=== PATIENT | male | born 1960 | race Caucasian/White ===

== ENCOUNTER 2018-04-04 20:38 | Inpatient (IN) | payer BC ==
[2018-04-04] MEDS ORDERED: ONDANSETRON 4 MG INJ IV (22:30)
[2018-04-04] MEDS ORDERED: GLUCOSE GEL 15 GRAM TUBE BUCCAL (22:30)
[2018-04-04] MEDS ORDERED: GLUCOSE GEL 15 GRAM TUBE PO ×2 (22:30)
[2018-04-04] MEDS ORDERED: DEXTROSE 50% 50 ML SYRINGE IV ×2 (22:30)
[2018-04-04] MEDS ORDERED: GLUCAGON 1 MG INJ IM (22:30)
[2018-04-04] MEDS ORDERED: VANCOMYCIN IV PER PHARMACY XX (22:30)
[2018-04-04] MEDS ORDERED: NACL 0.9% 3 ML SYG IV (22:30)
[2018-04-04 22:33] LABS: ADD MAN DIFF? NO
[2018-04-04 22:35] LABS: ABNORMAL IP MESSAGE 1; BASOPHILS % 0.1 % (0.0-2.0); EOSINOPHILS # 0.1 10^3/ul (0.0-0.5); EOSINOPHILS % 0.7 % (0.0-7.0); HEMATOCRIT 33.8 % (42.0-52.0); HEMOGLOBIN 11.6 g/dl (14.0-18.0); LYMPHOCYTES # 0.5 10^3/ul (0.8-2.9); LYMPHOCYTES % 4.7 % (15.0-51.0); MEAN CORPUSCULAR HGB CONC 34.3 g/dl (32.0-37.0); MEAN CORPUSCULAR VOLUME 90.4 fl (82.0-101.0); MEAN PLATELET VOLUME 9.7 fl (7.4-10.4); MONOCYTE # 0.3 10^3/ul (0.3-0.9); MONOCYTES % 2.8 % (0.0-11.0); NEUTROPHIL # 9.3 10^3/ul (1.6-7.5); NEUTROPHILS % 91.3 % (39.0-77.0); PLATELET COUNT 306 10^3/UL (140-415); POSITIVE DIFF @See below; RED BLOOD COUNT 3.74 10^6/ul (4.70-6.10); RED CELL DISTRIBUTION WIDTH 12.3 % (11.5-14.5)
[2018-04-04 22:35] LABS: WHITE BLOOD COUNT 10.2 10^3/ul (4.8-10.8)
[2018-04-04] MEDS: HEPARIN 5,000 UNIT/1 ML VIAL SC (22:48)
[2018-04-04] MEDS: HYDROCODONE/APAP (5/325) TAB PO (22:49)
[2018-04-04 22:54] LABS: ANION GAP 16 (5-13); BLOOD UREA NITROGEN 35 mg/dl (7-20); CALCIUM 8.9 mg/dl (8.4-10.2); CARBON DIOXIDE 16 mmol/L (21-31); CHLORIDE 106 mmol/L (97-110); CREATININE 1.82 mg/dl (0.61-1.24); Estimated GFR 39 mL/min (>60); GLUCOSE 252 mg/dl (70-220); POTASSIUM 3.9 mmol/L (3.5-5.1); SODIUM 138 mmol/L (135-144)
[2018-04-04 23:39] LABS: ERYTHROCYTE SEDIMENTATION RATE 70 mm/Hr (0-20)
[2018-04-05] MEDS: VANCOMYCIN 2 GM in SOD CHLORIDE 0.9% 500 ML IVPB (00:43)
[2018-04-05] MEDS: ACCU-CHEK XX (02:00)
[2018-04-05] MEDS ORDERED: PENDING SANTYL ORDER FOR WOUND CARE XX (04:30)
[2018-04-05] MEDS ORDERED: COLLAGENASE 5 GM (UD JAR) TOP (05:00)
[2018-04-05 06:06] LABS: ADD MAN DIFF? NO
[2018-04-05 06:08] LABS: WHITE BLOOD COUNT 9.8 10^3/ul (4.8-10.8)
[2018-04-05 06:08] LABS: ABNORMAL IP MESSAGE 1; BASOPHILS % 0.1 % (0.0-2.0); EOSINOPHILS # 0.2 10^3/ul (0.0-0.5); EOSINOPHILS % 1.7 % (0.0-7.0); HEMATOCRIT 33.1 % (42.0-52.0); HEMOGLOBIN 11.3 g/dl (14.0-18.0); LYMPHOCYTES # 0.3 10^3/ul (0.8-2.9); LYMPHOCYTES % 3.2 % (15.0-51.0); MEAN CORPUSCULAR HGB CONC 34.1 g/dl (32.0-37.0); MEAN CORPUSCULAR VOLUME 90.9 fl (82.0-101.0); MEAN PLATELET VOLUME 9.7 fl (7.4-10.4); MONOCYTE # 0.2 10^3/ul (0.3-0.9); MONOCYTES % 1.6 % (0.0-11.0); NEUTROPHIL # 9.1 10^3/ul (1.6-7.5); NEUTROPHILS % 92.9 % (39.0-77.0); PLATELET COUNT 301 10^3/UL (140-415); POSITIVE DIFF @See below; RED BLOOD COUNT 3.64 10^6/ul (4.70-6.10); RED CELL DISTRIBUTION WIDTH 12.3 % (11.5-14.5)
[2018-04-05] MEDS: HEPARIN 5,000 UNIT/1 ML VIAL SC ×2 (06:09→20:38)
[2018-04-05 06:31] LABS: ADD UMIC YES; UR ASCORBIC ACID NEGATIVE (NEGATIVE); UR BACTERIA FEW /HPF (NONE SEEN); UR BILIRUBIN (Dip) NEGATIVE (NEGATIVE); UR BLOOD (Dip) NEGATIVE (NEGATIVE); UR CLARITY CLOUDY (CLEAR); UR COLOR AMBER (YELLOW); UR GLUCOSE (Dip) 1+ mg/dL (NEGATIVE); UR KETONES (Dip) NEGATIVE (NEGATIVE); UR LEUKOCYTE ESTERASE (Dip) 1+ Leu/ul (NEGATIVE); UR NITRITE (Dip) NEGATIVE (NEGATIVE); UR RBC 1 /HPF (0-5); UR SPECIFIC GRAVITY (Dip) 1.019 (1.003-1.030); UR SQUAMOUS EPITHELIAL CELL FEW /HPF (FEW); UR TOTAL PROTEIN (Dip) 2+ mg/dl (NEGATIVE); UR UROBILINOGEN (Dip) 2+ mg/dL (NEGATIVE); UR WBC 13 /HPF (0-5)
[2018-04-05 06:36] LABS: HEMOGLOBIN A1C 9.4 % (0-5.9)
[2018-04-05 06:50] LABS: ALANINE AMINOTRANSFERASE 91 IU/L (13-69); ALBUMIN 2.9 g/dl (3.3-4.9); ALBUMIN/GLOBULIN RATIO 0.93; ALKALINE PHOSPHATASE 151 IU/L (42-121); ANION GAP 13 (5-13); ASPARTATE AMINO TRANSFERASE 56 IU/L (15-46); BILIRUBIN,INDIRECT 0.3 mg/dl (0-1.1); BILIRUBIN,TOTAL 0.3 mg/dl (0.2-1.3); BLOOD UREA NITROGEN 44 mg/dl (7-20); CALCIUM 8.2 mg/dl (8.4-10.2); CARBON DIOXIDE 16 mmol/L (21-31); CHLORIDE 108 mmol/L (97-110); CHOL/HDL RATIO 6.8 RATIO; CHOLESTEROL 130 mg/dl (100-200); CREATININE 1.96 mg/dl (0.61-1.24); Estimated GFR 35 mL/min (>60); GLUCOSE 308 mg/dl (70-220); HDL CHOLESTEROL 19 mg/dl (28-71); LDL CHOLESTEROL,CALCULATED 82 mg/dl; MAGNESIUM 1.6 mg/dl (1.7-2.5); POTASSIUM 3.9 mmol/L (3.5-5.1); SODIUM 137 mmol/L (135-144); TRIGLYCERIDES 143 mg/dl (0-149)
[2018-04-05] MEDS: INSULIN ASPART [NOVOLOG] 3 ML PEN SC ×4 (08:06→20:34)
[2018-04-05 08:10] LABS: THYROID STIMULATING HORMONE 0.432 MIU/L (0.465-4.680)
[2018-04-05] MEDS: MAGNESIUM OXIDE 400 MG TAB PO (09:28)
[2018-04-05] MEDS: COLLAGENASE 5 GM (UD JAR) TOP (09:28)
[2018-04-05] MEDS: SOD CHLORIDE 0.9% 1,000 ML IV ×2 (09:30→20:17)
[2018-04-05 12:36] LABS: C-REACTIVE PROTEIN 23.3 mg/dl (0.0-0.9)
[2018-04-05] MEDS: GUAIFENESIN 20 MG/ML 5ML CUP PO (18:13)
[2018-04-05] MEDS: ACETAMINOPHEN 325 MG TAB PO (20:16)
[2018-04-05] MEDS: INSULIN GLARGINE [LANTus] (100 UNITS/ML) SYG SC (20:30)
[2018-04-06] MEDS: GUAIFENESIN 20 MG/ML 5ML CUP PO (02:43)
[2018-04-06] MEDS: SOD CHLORIDE 0.9% 1,000 ML IV (06:14)
[2018-04-06 06:21] LABS: ALANINE AMINOTRANSFERASE 78 IU/L (13-69); ALBUMIN 2.9 g/dl (3.3-4.9); ALBUMIN/GLOBULIN RATIO 0.96; ALKALINE PHOSPHATASE 184 IU/L (42-121); ANION GAP 10 (5-13); ASPARTATE AMINO TRANSFERASE 30 IU/L (15-46); BILIRUBIN,INDIRECT 0.2 mg/dl (0-1.1); BILIRUBIN,TOTAL 0.2 mg/dl (0.2-1.3); BLOOD UREA NITROGEN 37 mg/dl (7-20); CALCIUM 8.1 mg/dl (8.4-10.2); CARBON DIOXIDE 16 mmol/L (21-31); CHLORIDE 113 mmol/L (97-110); CREATININE 1.43 mg/dl (0.61-1.24); Estimated GFR 51 mL/min (>60); GLUCOSE 285 mg/dl (70-220); MAGNESIUM 1.8 mg/dl (1.7-2.5); POTASSIUM 3.8 mmol/L (3.5-5.1); SODIUM 139 mmol/L (135-144); TOTAL PROTEIN 5.9 g/dl (6.1-8.1)
[2018-04-06] MEDS: INSULIN ASPART [NOVOLOG] 3 ML PEN SC ×4 (07:56→20:16)
[2018-04-06] MEDS: LEVOFLOXACIN 750MG/D5W (PMX) 150 ML IVPB (09:05)
[2018-04-06] MEDS: HEPARIN 5,000 UNIT/1 ML VIAL SC ×2 (09:05→20:17)
[2018-04-06] MEDS: COLLAGENASE 5 GM (UD JAR) TOP (09:05)
[2018-04-06] MEDS: VANCOMYCIN 1 GM 250 ML IVPB ×2 (11:11→22:52)
[2018-04-06] MEDS: SODIUM HYPOCHLORITE (1/40) 1 APPLIC BTL IRR (11:11)
[2018-04-06 13:30] LABS: C-REACTIVE PROTEIN 20.8 mg/dl (0.0-0.9)
[2018-04-06 14:04] LABS: ERYTHROCYTE SEDIMENTATION RATE 63 mm/Hr (0-20)
[2018-04-06] MEDS: GUAIFENESIN/DM 5ML CUP PO ×2 (17:30→22:39)
[2018-04-06] MEDS: ACETAMINOPHEN 325 MG TAB PO (20:06)
[2018-04-06] MEDS: INSULIN GLARGINE [LANTus] (100 UNITS/ML) SYG SC (20:16)
[2018-04-06] MEDS: LEVALBUTEROL (NEB) 1.25 MG/0.5 ML AMP HHN (22:56)
[2018-04-07] MEDS: LEVALBUTEROL (NEB) 1.25 MG/0.5 ML AMP HHN ×6 (02:11→21:34)
[2018-04-07] MEDS: DOCUSATE SODIUM 100 MG CAP PO ×3 (02:22→21:12)
[2018-04-07] MEDS: BISACODYL (EC) 5 MG TAB PO (02:23)
[2018-04-07] MEDS: INSULIN ASPART [NOVOLOG] 3 ML PEN SC ×5 (02:47→21:06)
[2018-04-07] MEDS: GUAIFENESIN/DM 5ML CUP PO ×2 (02:48→23:28)
[2018-04-07 06:44] LABS: ADD MAN DIFF? NO
[2018-04-07 07:03] LABS: WHITE BLOOD COUNT 12.9 10^3/ul (4.8-10.8)
[2018-04-07 07:03] LABS: BASOPHILS % 0.2 % (0.0-2.0); EOSINOPHILS # 0.3 10^3/ul (0.0-0.5); EOSINOPHILS % 2.3 % (0.0-7.0); HEMATOCRIT 30.6 % (42.0-52.0); HEMOGLOBIN 10.4 g/dl (14.0-18.0); LYMPHOCYTES # 1.3 10^3/ul (0.8-2.9); LYMPHOCYTES % 9.8 % (15.0-51.0); MEAN CORPUSCULAR HEMOGLOBIN 30.9 pg (29.0-33.0); MEAN CORPUSCULAR VOLUME 90.8 fl (82.0-101.0); MEAN PLATELET VOLUME 9.8 fl (7.4-10.4); MONOCYTE # 0.8 10^3/ul (0.3-0.9); MONOCYTES % 6.3 % (0.0-11.0); NEUTROPHIL # 10.4 10^3/ul (1.6-7.5); NEUTROPHILS % 80.9 % (39.0-77.0); PLATELET COUNT 326 10^3/UL (140-415); RED BLOOD COUNT 3.37 10^6/ul (4.70-6.10); RED CELL DISTRIBUTION WIDTH 12.5 % (11.5-14.5)
[2018-04-07 07:14] LABS: ALBUMIN 2.9 g/dl (3.3-4.9); ANION GAP 15 (5-13); BLOOD UREA NITROGEN 27 mg/dl (7-20); CALCIUM 8.4 mg/dl (8.4-10.2); CARBON DIOXIDE 13 mmol/L (21-31); CHLORIDE 111 mmol/L (97-110); CREATININE 1.17 mg/dl (0.61-1.24); GLUCOSE 327 mg/dl (70-220); MAGNESIUM 1.7 mg/dl (1.7-2.5); PHOSPHORUS 2.6 mg/dl (2.5-4.9); POTASSIUM 3.8 mmol/L (3.5-5.1); SODIUM 139 mmol/L (135-144)
[2018-04-07] MEDS: POLYETHYLENE GLYCOL 17 GM PACKET PO (08:25)
[2018-04-07] MEDS: HEPARIN 5,000 UNIT/1 ML VIAL SC ×2 (08:25→21:07)
[2018-04-07] MEDS: COLLAGENASE 5 GM (UD JAR) TOP ×2 (08:36→09:00)
[2018-04-07] MEDS: SODIUM HYPOCHLORITE (1/40) 1 APPLIC BTL IRR (10:23)
[2018-04-07] MEDS ORDERED: LEVOFLOXACIN 750MG/D5W (PMX) 150 ML IVPB (11:00)
[2018-04-07] MEDS: VANCOMYCIN 1 GM 250 ML IVPB (11:51)
[2018-04-07 12:52] LABS: LACTIC ACID 1.2 mmol/L (0.5-2.0)
[2018-04-07 12:55] LABS: GLUCOSE 443 mg/dl (70-220)
[2018-04-07 13:32] LABS: ERYTHROCYTE SEDIMENTATION RATE 74 mm/Hr (0-20)
[2018-04-07] MEDS: INSULIN GLARGINE [LANTus] (100 UNITS/ML) SYG SC ×2 (13:50→21:05)
[2018-04-07] MEDS: ACETAMINOPHEN 325 MG TAB PO ×2 (14:27→23:22)
[2018-04-07] MEDS: LEVOFLOXACIN 750MG/D5W (PMX) 150 ML IVPB (14:28)
[2018-04-07] MEDS: MEROPENEM 1 GM/50ML(PMX) 50 ML IVPB ×2 (16:12→21:14)
[2018-04-07] MEDS ORDERED: LACTULOSE 30ML CUP PO ×2 (16:30→19:00)
[2018-04-07 19:37] LABS: GLUCOSE 411 mg/dl (70-220)
[2018-04-07 23:09] LABS: VANCOMYCIN,TROUGH 9.6 ug/ml (10.0-20.0)
[2018-04-07] MEDS: VANCOMYCIN 1.25 GM in SOD CHLORIDE 0.9% 250 ML IVPB (23:35)
[2018-04-08] MEDS: LEVALBUTEROL (NEB) 1.25 MG/0.5 ML AMP HHN ×6 (01:22→20:07)
[2018-04-08] MEDS: INSULIN ASPART [NOVOLOG] 3 ML PEN SC ×5 (03:44→22:03)
[2018-04-08 05:16] LABS: ADD MAN DIFF? NO
[2018-04-08 05:34] LABS: BASOPHILS % 0.1 % (0.0-2.0); EOSINOPHILS # 0.3 10^3/ul (0.0-0.5); EOSINOPHILS % 2.2 % (0.0-7.0); HEMATOCRIT 28.6 % (42.0-52.0); HEMOGLOBIN 9.8 g/dl (14.0-18.0); LYMPHOCYTES # 1.2 10^3/ul (0.8-2.9); MEAN CORPUSCULAR HEMOGLOBIN 30.7 pg (29.0-33.0); MEAN CORPUSCULAR HGB CONC 34.3 g/dl (32.0-37.0); MEAN CORPUSCULAR VOLUME 89.7 fl (82.0-101.0); MEAN PLATELET VOLUME 9.5 fl (7.4-10.4); MONOCYTE # 0.9 10^3/ul (0.3-0.9); MONOCYTES % 7.2 % (0.0-11.0); NEUTROPHIL # 10.5 10^3/ul (1.6-7.5); NEUTROPHILS % 80.8 % (39.0-77.0); PLATELET COUNT 310 10^3/UL (140-415); RED BLOOD COUNT 3.19 10^6/ul (4.70-6.10); RED CELL DISTRIBUTION WIDTH 12.2 % (11.5-14.5)
[2018-04-08 05:34] LABS: WHITE BLOOD COUNT 12.9 10^3/ul (4.8-10.8)
[2018-04-08 06:06] LABS: ALBUMIN 2.8 g/dl (3.3-4.9); ANION GAP 10 (5-13); BLOOD UREA NITROGEN 23 mg/dl (7-20); CALCIUM 8.8 mg/dl (8.4-10.2); CARBON DIOXIDE 16 mmol/L (21-31); CHLORIDE 111 mmol/L (97-110); CREATININE 1.17 mg/dl (0.61-1.24); GLUCOSE 276 mg/dl (70-220); MAGNESIUM 1.8 mg/dl (1.7-2.5); PHOSPHORUS 2.5 mg/dl (2.5-4.9); POTASSIUM 3.6 mmol/L (3.5-5.1); SODIUM 137 mmol/L (135-144)
[2018-04-08 06:31] LABS: C-REACTIVE PROTEIN 23.6 mg/dl (0.0-0.9)
[2018-04-08 08:03] LABS: ERYTHROCYTE SEDIMENTATION RATE 102 mm/Hr (0-20)
[2018-04-08] MEDS: COLLAGENASE 5 GM (UD JAR) TOP (09:00)
[2018-04-08] MEDS: POLYETHYLENE GLYCOL 17 GM PACKET PO (09:00)
[2018-04-08] MEDS: HEPARIN 5,000 UNIT/1 ML VIAL SC ×2 (09:00→22:02)
[2018-04-08] MEDS: DOCUSATE SODIUM 100 MG CAP PO ×2 (09:00→21:45)
[2018-04-08] MEDS ORDERED: LEVOFLOXACIN 750MG/D5W (PMX) 150 ML IVPB (09:00)
[2018-04-08] MEDS: MEROPENEM 1 GM/50ML(PMX) 50 ML IVPB ×2 (09:04→21:45)
[2018-04-08] MEDS: SODIUM HYPOCHLORITE (1/40) 1 APPLIC BTL IRR (09:08)
[2018-04-08] MEDS: ACETAMINOPHEN 325 MG TAB PO (09:29)
[2018-04-08] MEDS: VANCOMYCIN 1.25 GM in SOD CHLORIDE 0.9% 250 ML IVPB ×2 (11:09→23:18)
[2018-04-08] MEDS: ASCORBIC ACID 500 MG TAB PO (16:00)
[2018-04-08] MEDS: ZINC SULFATE 220 MG CAP PO (16:00)
[2018-04-08] MEDS: MULTIVITAMINS THERAPEUTIC TAB PO (16:00)
[2018-04-08] MEDS ORDERED: PROPOFOL 20 ML (17:28)
[2018-04-08] MEDS ORDERED: LIDOCAINE 2% (SDV) 5 ML INJ (17:28)
[2018-04-08] MEDS ORDERED: MIDAZOLAM 1 MG/ML 2 ML INJ (17:28)
[2018-04-08] MEDS ORDERED: FENTAnyl 50 MCG/ML VIAL (17:28)
[2018-04-08] MEDS: LIDOCAINE 1% (MPF) 30 ML INJ (17:54)
[2018-04-08] MEDS: BACITRACIN 50000 UNITS INJ (17:55)
[2018-04-08] MEDS: POLYMYXIN B 500000 UNIT INJ (17:55)
[2018-04-08] MEDS: POLYMYXIN/BACITRACIN 1L IRRIG (17:56)
[2018-04-08] MEDS ORDERED: ONDANSETRON 4 MG INJ IV (18:00)
[2018-04-08] MEDS ORDERED: HYDROmorphONE 1 MG/5 ML IV SYRINGE IV ×2 (18:00)
[2018-04-08] MEDS ORDERED: PROCHLORPERAZINE 10 MG INJ IV (18:00)
[2018-04-08] MEDS ORDERED: FENTAnyl 50 MCG/ML VIAL IV (18:00)
[2018-04-08] MEDS ORDERED: MEPERIDINE 25 MG INJ IV (18:00)
[2018-04-08] MEDS ORDERED: DIPHENHYDRAMINE 50 MG INJ IV (18:00)
[2018-04-08] MEDS: INSULIN GLARGINE [LANTus] (100 UNITS/ML) SYG SC (22:03)
[2018-04-09] MEDS: LEVALBUTEROL (NEB) 1.25 MG/0.5 ML AMP HHN ×7 (01:00→20:05)
[2018-04-09 06:05] LABS: ADD MAN DIFF? NO
[2018-04-09 06:09] LABS: WHITE BLOOD COUNT 12.1 10^3/ul (4.8-10.8)
[2018-04-09 06:09] LABS: BASOPHILS % 0.2 % (0.0-2.0); EOSINOPHILS # 0.4 10^3/ul (0.0-0.5); HEMATOCRIT 28.7 % (42.0-52.0); HEMOGLOBIN 9.9 g/dl (14.0-18.0); LYMPHOCYTES # 1.8 10^3/ul (0.8-2.9); LYMPHOCYTES % 14.5 % (15.0-51.0); MEAN CORPUSCULAR HEMOGLOBIN 30.8 pg (29.0-33.0); MEAN CORPUSCULAR HGB CONC 34.5 g/dl (32.0-37.0); MEAN CORPUSCULAR VOLUME 89.4 fl (82.0-101.0); MEAN PLATELET VOLUME 9.4 fl (7.4-10.4); MONOCYTE # 0.8 10^3/ul (0.3-0.9); MONOCYTES % 6.8 % (0.0-11.0); NEUTROPHILS % 74.5 % (39.0-77.0); PLATELET COUNT 376 10^3/UL (140-415); RED BLOOD COUNT 3.21 10^6/ul (4.70-6.10); RED CELL DISTRIBUTION WIDTH 12.4 % (11.5-14.5)
[2018-04-09 06:27] LABS: ALBUMIN 2.7 g/dl (3.3-4.9); ANION GAP 10 (5-13); BLOOD UREA NITROGEN 25 mg/dl (7-20); CALCIUM 8.7 mg/dl (8.4-10.2); CARBON DIOXIDE 18 mmol/L (21-31); CHLORIDE 112 mmol/L (97-110); CREATININE 1.12 mg/dl (0.61-1.24); GLUCOSE 208 mg/dl (70-220); MAGNESIUM 1.8 mg/dl (1.7-2.5); PHOSPHORUS 2.3 mg/dl (2.5-4.9); POTASSIUM 3.9 mmol/L (3.5-5.1); SODIUM 140 mmol/L (135-144)
[2018-04-09] MEDS: INSULIN ASPART [NOVOLOG] 3 ML PEN SC ×5 (07:59→20:35)
[2018-04-09] MEDS: MEROPENEM 1 GM/50ML(PMX) 50 ML IVPB ×2 (08:51→20:40)
[2018-04-09] MEDS: MULTIVITAMINS THERAPEUTIC TAB PO (08:52)
[2018-04-09] MEDS: ZINC SULFATE 220 MG CAP PO (08:52)
[2018-04-09] MEDS: ASCORBIC ACID 500 MG TAB PO (08:52)
[2018-04-09] MEDS: HEPARIN 5,000 UNIT/1 ML VIAL SC ×2 (08:58→20:38)
[2018-04-09] MEDS: POLYETHYLENE GLYCOL 17 GM PACKET PO ×2 (09:00→15:59)
[2018-04-09] MEDS: DOCUSATE SODIUM 100 MG CAP PO ×3 (09:00→20:40)
[2018-04-09] MEDS: COLLAGENASE 5 GM (UD JAR) TOP (09:04)
[2018-04-09] MEDS: SODIUM HYPOCHLORITE (1/40) 1 APPLIC BTL IRR (09:04)
[2018-04-09] MEDS: VANCOMYCIN 1.25 GM in SOD CHLORIDE 0.9% 250 ML IVPB ×2 (10:32→22:37)
[2018-04-09 10:47] LABS: C-REACTIVE PROTEIN 19.9 mg/dl (0.0-0.9)
[2018-04-09 11:33] LABS: ERYTHROCYTE SEDIMENTATION RATE 71 mm/Hr (0-20)
[2018-04-09] MEDS: POTASSIUM PHOSPHATE 20 MEQ in SOD CHLORIDE 0.9% 250 ML IVPB (14:34)
[2018-04-09] MEDS: GUAIFENESIN/DM 5ML CUP PO (15:55)
[2018-04-09] MEDS: glipiZIDE 5 MG TAB PO (17:25)
[2018-04-09] MEDS: INSULIN GLARGINE [LANTus] (100 UNITS/ML) SYG SC (20:40)
[2018-04-10] MEDS: LEVALBUTEROL (NEB) 1.25 MG/0.5 ML AMP HHN ×6 (01:10→20:24)
[2018-04-10 05:22] LABS: ADD MAN DIFF? NO
[2018-04-10 05:23] LABS: BASOPHILS % 0.3 % (0.0-2.0); EOSINOPHILS # 0.3 10^3/ul (0.0-0.5); EOSINOPHILS % 2.6 % (0.0-7.0); HEMATOCRIT 28.2 % (42.0-52.0); HEMOGLOBIN 9.6 g/dl (14.0-18.0); LYMPHOCYTES # 2.2 10^3/ul (0.8-2.9); LYMPHOCYTES % 18.8 % (15.0-51.0); MEAN CORPUSCULAR HEMOGLOBIN 30.4 pg (29.0-33.0); MEAN CORPUSCULAR VOLUME 89.2 fl (82.0-101.0); MEAN PLATELET VOLUME 9.3 fl (7.4-10.4); MONOCYTE # 0.6 10^3/ul (0.3-0.9); MONOCYTES % 5.6 % (0.0-11.0); NEUTROPHIL # 8.2 10^3/ul (1.6-7.5); NEUTROPHILS % 70.9 % (39.0-77.0); PLATELET COUNT 385 10^3/UL (140-415); POSITIVE DIFF @See below; RED BLOOD COUNT 3.16 10^6/ul (4.70-6.10); RED CELL DISTRIBUTION WIDTH 12.3 % (11.5-14.5)
[2018-04-10 05:23] LABS: WHITE BLOOD COUNT 11.5 10^3/ul (4.8-10.8)
[2018-04-10 06:22] LABS: ALBUMIN 2.6 g/dl (3.3-4.9); ANION GAP 4 (5-13); BLOOD UREA NITROGEN 25 mg/dl (7-20); CALCIUM 8.7 mg/dl (8.4-10.2); CARBON DIOXIDE 19 mmol/L (21-31); CHLORIDE 114 mmol/L (97-110); CREATININE 1.02 mg/dl (0.61-1.24); GLUCOSE 100 mg/dl (70-220); MAGNESIUM 1.9 mg/dl (1.7-2.5); POTASSIUM 3.8 mmol/L (3.5-5.1); SODIUM 137 mmol/L (135-144)
[2018-04-10] MEDS: glipiZIDE 5 MG TAB PO ×2 (07:50→17:35)
[2018-04-10] MEDS: INSULIN ASPART [NOVOLOG] 3 ML PEN SC ×7 (07:52→21:00)
[2018-04-10] MEDS: POLYETHYLENE GLYCOL 17 GM PACKET PO (08:36)
[2018-04-10] MEDS: DOCUSATE SODIUM 100 MG CAP PO ×2 (08:36→20:45)
[2018-04-10] MEDS: ASCORBIC ACID 500 MG TAB PO (08:36)
[2018-04-10] MEDS: MEROPENEM 1 GM/50ML(PMX) 50 ML IVPB ×2 (08:36→20:45)
[2018-04-10] MEDS: MULTIVITAMINS THERAPEUTIC TAB PO (08:36)
[2018-04-10] MEDS: ZINC SULFATE 220 MG CAP PO (08:36)
[2018-04-10] MEDS: HEPARIN 5,000 UNIT/1 ML VIAL SC ×2 (08:37→20:46)
[2018-04-10] MEDS: SODIUM HYPOCHLORITE (1/40) 1 APPLIC BTL IRR ×2 (08:49→21:00)
[2018-04-10] MEDS: COLLAGENASE 5 GM (UD JAR) TOP (09:00)
[2018-04-10 10:37] LABS: VANCOMYCIN,TROUGH 14.4 ug/ml (10.0-20.0)
[2018-04-10] MEDS: VANCOMYCIN 1.25 GM in SOD CHLORIDE 0.9% 250 ML IVPB ×2 (11:40→23:10)
[2018-04-10] MEDS: GUAIFENESIN/DM 5ML CUP PO (20:44)
[2018-04-10] MEDS: INSULIN GLARGINE [LANTus] (100 UNITS/ML) SYG SC (20:58)
[2018-04-11] MEDS: LEVALBUTEROL (NEB) 1.25 MG/0.5 ML AMP HHN ×6 (00:27→20:59)
[2018-04-11 05:27] LABS: ADD MAN DIFF? NO
[2018-04-11 05:37] LABS: WHITE BLOOD COUNT 11.5 10^3/ul (4.8-10.8)
[2018-04-11 05:37] LABS: BASOPHIL # 0.1 10^3/ul (0.0-0.1); BASOPHILS % 0.4 % (0.0-2.0); EOSINOPHILS # 0.3 10^3/ul (0.0-0.5); EOSINOPHILS % 2.5 % (0.0-7.0); HEMATOCRIT 29.9 % (42.0-52.0); HEMOGLOBIN 10.3 g/dl (14.0-18.0); LYMPHOCYTES # 2.6 10^3/ul (0.8-2.9); LYMPHOCYTES % 22.3 % (15.0-51.0); MEAN CORPUSCULAR HEMOGLOBIN 30.7 pg (29.0-33.0); MEAN CORPUSCULAR HGB CONC 34.4 g/dl (32.0-37.0); MEAN PLATELET VOLUME 9.3 fl (7.4-10.4); MONOCYTE # 0.7 10^3/ul (0.3-0.9); MONOCYTES % 6.4 % (0.0-11.0); NEUTROPHIL # 7.6 10^3/ul (1.6-7.5); NEUTROPHILS % 66.1 % (39.0-77.0); PLATELET COUNT 412 10^3/UL (140-415); POSITIVE DIFF @See below; RED BLOOD COUNT 3.36 10^6/ul (4.70-6.10); RED CELL DISTRIBUTION WIDTH 12.2 % (11.5-14.5)
[2018-04-11 06:00] LABS: ALBUMIN 2.7 g/dl (3.3-4.9); ANION GAP 6 (5-13); BLOOD UREA NITROGEN 24 mg/dl (7-20); CALCIUM 8.6 mg/dl (8.4-10.2); CARBON DIOXIDE 20 mmol/L (21-31); CHLORIDE 111 mmol/L (97-110); GLUCOSE 113 mg/dl (70-220); PHOSPHORUS 3.3 mg/dl (2.5-4.9); POTASSIUM 3.7 mmol/L (3.5-5.1); SODIUM 137 mmol/L (135-144)
[2018-04-11] MEDS: INSULIN ASPART [NOVOLOG] 3 ML PEN SC ×7 (08:00→20:57)
[2018-04-11] MEDS: HEPARIN 5,000 UNIT/1 ML VIAL SC ×2 (08:11→20:54)
[2018-04-11] MEDS: ZINC SULFATE 220 MG CAP PO (08:11)
[2018-04-11] MEDS: COLLAGENASE 5 GM (UD JAR) TOP (08:12)
[2018-04-11] MEDS: MEROPENEM 1 GM/50ML(PMX) 50 ML IVPB ×2 (08:12→20:48)
[2018-04-11] MEDS: POLYETHYLENE GLYCOL 17 GM PACKET PO (08:12)
[2018-04-11] MEDS: DOCUSATE SODIUM 100 MG CAP PO ×2 (08:12→20:48)
[2018-04-11] MEDS: ASCORBIC ACID 500 MG TAB PO (08:12)
[2018-04-11] MEDS: MULTIVITAMINS THERAPEUTIC TAB PO (08:12)
[2018-04-11] MEDS: glipiZIDE 5 MG TAB PO ×2 (08:15→17:17)
[2018-04-11] MEDS: SODIUM HYPOCHLORITE (1/40) 1 APPLIC BTL IRR ×2 (08:26→23:42)
[2018-04-11 10:20] LABS: ANISOCYTOSIS 1+ (0-0); BAND NEUTROPHILS #M 0.3 10^3/ul (0.0-0.6); BAND NEUTROPHILS % (M) 3 % (0-4); BASOPHIL #M 0.1 10^3/ul (0.0-0.0); BASOPHILS % (M) 1 % (0-2); EOSINOPHILS % (M) 1 % (0-7); GIANT THROMBO% (M) 2 % (0-0); LYMPHOCYTES #M 1.4 10^3/ul (0.8-2.9); LYMPHOCYTES % (M) 13 % (15-51); MONOCYTE #M 0.2 10^3/ul (0.3-0.9); MONOCYTES % (M) 2 % (0-11); MYELOCYTES #M 0.2 10^3/ul (0.0-0.0); MYELOCYTES % (M) 2 % (0-0); PLATELET ESTIMATE NORMAL; REACTIVE LYMPHOCYTES #M 0.1 10^3/ul (0.0-0.0); REACTIVE LYMPHOCYTES% (M) 1 % (0-0); SEG NEUT #M 8.9 10^3/ul (1.6-7.5); SEGMENTED NEUTROPHILS (M) % 77 % (39-77); SMUDGE%M 36 % (0-0)
[2018-04-11] MEDS: VANCOMYCIN 1.25 GM in SOD CHLORIDE 0.9% 250 ML IVPB ×2 (12:28→22:41)
[2018-04-11] MEDS: INSULIN GLARGINE [LANTus] (100 UNITS/ML) SYG SC (20:56)
[2018-04-12] MEDS: LEVALBUTEROL (NEB) 1.25 MG/0.5 ML AMP HHN ×6 (00:36→20:43)
[2018-04-12 07:17] LABS: ADD MAN DIFF? NO
[2018-04-12 07:22] LABS: WHITE BLOOD COUNT 11.4 10^3/ul (4.8-10.8)
[2018-04-12 07:22] LABS: BASOPHIL # 0.1 10^3/ul (0.0-0.1); BASOPHILS % 0.5 % (0.0-2.0); EOSINOPHILS # 0.4 10^3/ul (0.0-0.5); EOSINOPHILS % 3.4 % (0.0-7.0); HEMATOCRIT 29.7 % (42.0-52.0); HEMOGLOBIN 10.1 g/dl (14.0-18.0); LYMPHOCYTES # 2.4 10^3/ul (0.8-2.9); LYMPHOCYTES % 21.4 % (15.0-51.0); MEAN CORPUSCULAR HEMOGLOBIN 30.8 pg (29.0-33.0); MEAN CORPUSCULAR VOLUME 90.5 fl (82.0-101.0); MEAN PLATELET VOLUME 9.3 fl (7.4-10.4); MONOCYTE # 0.7 10^3/ul (0.3-0.9); MONOCYTES % 6.2 % (0.0-11.0); NEUTROPHIL # 7.4 10^3/ul (1.6-7.5); PLATELET COUNT 436 10^3/UL (140-415); RED BLOOD COUNT 3.28 10^6/ul (4.70-6.10); RED CELL DISTRIBUTION WIDTH 12.1 % (11.5-14.5)
[2018-04-12 07:57] LABS: ANION GAP 7 (5-13); BLOOD UREA NITROGEN 28 mg/dl (7-20); CALCIUM 8.7 mg/dl (8.4-10.2); CARBON DIOXIDE 19 mmol/L (21-31); CHLORIDE 109 mmol/L (97-110); CREATININE 0.95 mg/dl (0.61-1.24); Estimated GFR > 60 mL/min (>60); GLUCOSE 200 mg/dl (70-220); PHOSPHORUS 3.6 mg/dl (2.5-4.9); POTASSIUM 3.8 mmol/L (3.5-5.1); SODIUM 135 mmol/L (135-144)
[2018-04-12] MEDS: COLLAGENASE 5 GM (UD JAR) TOP (08:10)
[2018-04-12] MEDS: ZINC SULFATE 220 MG CAP PO (08:10)
[2018-04-12] MEDS: DOCUSATE SODIUM 100 MG CAP PO ×2 (08:10→20:47)
[2018-04-12] MEDS: ASCORBIC ACID 500 MG TAB PO (08:10)
[2018-04-12] MEDS: POLYETHYLENE GLYCOL 17 GM PACKET PO ×2 (08:11→08:24)
[2018-04-12] MEDS: glipiZIDE 5 MG TAB PO ×2 (08:11→17:18)
[2018-04-12] MEDS: MEROPENEM 1 GM/50ML(PMX) 50 ML IVPB ×3 (08:11→20:47)
[2018-04-12] MEDS: MULTIVITAMINS THERAPEUTIC TAB PO (08:11)
[2018-04-12] MEDS: INSULIN ASPART [NOVOLOG] 3 ML PEN SC ×7 (08:12→21:21)
[2018-04-12] MEDS: HEPARIN 5,000 UNIT/1 ML VIAL SC ×2 (08:13→21:18)
[2018-04-12] MEDS: SODIUM HYPOCHLORITE (1/40) 1 APPLIC BTL IRR ×2 (08:15→21:22)
[2018-04-12] MEDS: VANCOMYCIN 1.25 GM in SOD CHLORIDE 0.9% 250 ML IVPB ×2 (11:43→23:22)
[2018-04-12] MEDS: ACETAMINOPHEN 325 MG TAB PO (12:03)
[2018-04-12] MEDS: GUAIFENESIN/DM 5ML CUP PO (16:34)
[2018-04-12] MEDS: INSULIN GLARGINE [LANTus] (100 UNITS/ML) SYG SC (21:18)
[2018-04-13] MEDS: LEVALBUTEROL (NEB) 1.25 MG/0.5 ML AMP HHN ×6 (00:20→20:18)
[2018-04-13 06:25] LABS: ADD MAN DIFF? NO
[2018-04-13 06:37] LABS: BASOPHIL # 0.1 10^3/ul (0.0-0.1); BASOPHILS % 0.5 % (0.0-2.0); EOSINOPHILS # 0.4 10^3/ul (0.0-0.5); EOSINOPHILS % 3.6 % (0.0-7.0); HEMATOCRIT 30.3 % (42.0-52.0); HEMOGLOBIN 10.3 g/dl (14.0-18.0); LYMPHOCYTES # 2.3 10^3/ul (0.8-2.9); MEAN CORPUSCULAR HEMOGLOBIN 30.5 pg (29.0-33.0); MEAN CORPUSCULAR VOLUME 89.6 fl (82.0-101.0); MEAN PLATELET VOLUME 9.5 fl (7.4-10.4); MONOCYTE # 0.7 10^3/ul (0.3-0.9); MONOCYTES % 6.3 % (0.0-11.0); NEUTROPHIL # 7.5 10^3/ul (1.6-7.5); NEUTROPHILS % 65.9 % (39.0-77.0); PLATELET COUNT 483 10^3/UL (140-415); RED BLOOD COUNT 3.38 10^6/ul (4.70-6.10)
[2018-04-13 06:37] LABS: WHITE BLOOD COUNT 11.4 10^3/ul (4.8-10.8)
[2018-04-13 07:07] LABS: ANION GAP 11 (5-13); BLOOD UREA NITROGEN 30 mg/dl (7-20); CARBON DIOXIDE 19 mmol/L (21-31); CHLORIDE 108 mmol/L (97-110); CREATININE 1.07 mg/dl (0.61-1.24); Estimated GFR > 60 mL/min (>60); GLUCOSE 266 mg/dl (70-220); PHOSPHORUS 3.7 mg/dl (2.5-4.9); POTASSIUM 4.3 mmol/L (3.5-5.1); SODIUM 138 mmol/L (135-144)
[2018-04-13] MEDS: INSULIN ASPART [NOVOLOG] 3 ML PEN SC ×7 (08:04→20:39)
[2018-04-13] MEDS: HEPARIN 5,000 UNIT/1 ML VIAL SC ×2 (08:06→20:38)
[2018-04-13] MEDS: DOCUSATE SODIUM 100 MG CAP PO ×2 (08:10→20:47)
[2018-04-13] MEDS: ASCORBIC ACID 500 MG TAB PO (08:10)
[2018-04-13] MEDS: ZINC SULFATE 220 MG CAP PO (08:11)
[2018-04-13] MEDS: glipiZIDE 5 MG TAB PO ×2 (08:11→17:15)
[2018-04-13] MEDS: POLYETHYLENE GLYCOL 17 GM PACKET PO (08:11)
[2018-04-13] MEDS: COLLAGENASE 5 GM (UD JAR) TOP (08:11)
[2018-04-13] MEDS: MULTIVITAMINS THERAPEUTIC TAB PO (08:11)
[2018-04-13] MEDS: SODIUM HYPOCHLORITE (1/40) 1 APPLIC BTL IRR ×2 (08:11→20:37)
[2018-04-13] MEDS: MEROPENEM 1 GM/50ML(PMX) 50 ML IVPB (08:12)
[2018-04-13 10:58] LABS: C-REACTIVE PROTEIN 6.1 mg/dl (0.0-0.9)
[2018-04-13] MEDS: VANCOMYCIN 1.25 GM in SOD CHLORIDE 0.9% 250 ML IVPB ×2 (11:17→11:37)
[2018-04-13 12:00] LABS: ERYTHROCYTE SEDIMENTATION RATE 73 mm/Hr (0-20)
[2018-04-13] MEDS: LIDOCAINE 1% (MPF) 5 ML VIAL SC (16:15)
[2018-04-13] MEDS: DAPTOMYCIN 700 MG in SOD CHLORIDE 0.9% 100 ML IVPB (17:55)
[2018-04-13] MEDS: HYDROCODONE/APAP (5/325) TAB PO (19:13)
[2018-04-13] MEDS: INSULIN GLARGINE [LANTus] (100 UNITS/ML) SYG SC (20:38)
[2018-04-14] MEDS: LEVALBUTEROL (NEB) 1.25 MG/0.5 ML AMP HHN ×5 (01:52→16:52)
[2018-04-14] MEDS: LEVOFLOXACIN 750 MG TABLET PO (05:24)
[2018-04-14 07:29] LABS: ADD MAN DIFF? NO
[2018-04-14 07:34] LABS: BASOPHIL # 0.1 10^3/ul (0.0-0.1); BASOPHILS % 0.7 % (0.0-2.0); EOSINOPHILS # 0.3 10^3/ul (0.0-0.5); EOSINOPHILS % 3.5 % (0.0-7.0); HEMATOCRIT 30.6 % (42.0-52.0); HEMOGLOBIN 10.2 g/dl (14.0-18.0); LYMPHOCYTES # 2.1 10^3/ul (0.8-2.9); LYMPHOCYTES % 21.3 % (15.0-51.0); MEAN CORPUSCULAR HEMOGLOBIN 30.4 pg (29.0-33.0); MEAN CORPUSCULAR HGB CONC 33.3 g/dl (32.0-37.0); MEAN CORPUSCULAR VOLUME 91.3 fl (82.0-101.0); MEAN PLATELET VOLUME 9.3 fl (7.4-10.4); MONOCYTE # 0.7 10^3/ul (0.3-0.9); MONOCYTES % 6.6 % (0.0-11.0); NEUTROPHIL # 6.4 10^3/ul (1.6-7.5); NEUTROPHILS % 65.1 % (39.0-77.0); PLATELET COUNT 473 10^3/UL (140-415); RED BLOOD COUNT 3.35 10^6/ul (4.70-6.10); RED CELL DISTRIBUTION WIDTH 11.9 % (11.5-14.5)
[2018-04-14 07:34] LABS: WHITE BLOOD COUNT 9.9 10^3/ul (4.8-10.8)
[2018-04-14 07:53] LABS: CREATINE KINASE 40 IU/L (23-200)
[2018-04-14 07:54] LABS: ALANINE AMINOTRANSFERASE 91 IU/L (13-69); ALBUMIN/GLOBULIN RATIO 0.85; ALKALINE PHOSPHATASE 176 IU/L (42-121); ANION GAP 12 (5-13); ASPARTATE AMINO TRANSFERASE 43 IU/L (15-46); BLOOD UREA NITROGEN 31 mg/dl (7-20); CALCIUM 9.2 mg/dl (8.4-10.2); CARBON DIOXIDE 21 mmol/L (21-31); CHLORIDE 106 mmol/L (97-110); CREATININE 0.91 mg/dl (0.61-1.24); Estimated GFR > 60 mL/min (>60); GLUCOSE 148 mg/dl (70-220); POTASSIUM 3.8 mmol/L (3.5-5.1); SODIUM 139 mmol/L (135-144); TOTAL PROTEIN 6.5 g/dl (6.1-8.1)
[2018-04-14] MEDS: INSULIN ASPART [NOVOLOG] 3 ML PEN SC ×6 (08:01→17:36)
[2018-04-14] MEDS: glipiZIDE 5 MG TAB PO ×2 (08:02→17:34)
[2018-04-14 08:57] LABS: C-REACTIVE PROTEIN 4.7 mg/dl (0.0-0.9)
[2018-04-14] MEDS: COLLAGENASE 5 GM (UD JAR) TOP (09:00)
[2018-04-14] MEDS: DOCUSATE SODIUM 100 MG CAP PO (09:00)
[2018-04-14] MEDS: POLYETHYLENE GLYCOL 17 GM PACKET PO (09:00)
[2018-04-14] MEDS: ZINC SULFATE 220 MG CAP PO (09:25)
[2018-04-14] MEDS: ASCORBIC ACID 500 MG TAB PO (09:25)
[2018-04-14] MEDS: MULTIVITAMINS THERAPEUTIC TAB PO (09:25)
[2018-04-14] MEDS: SODIUM HYPOCHLORITE (1/40) 1 APPLIC BTL IRR (09:25)
[2018-04-14] MEDS: HEPARIN 5,000 UNIT/1 ML VIAL SC (09:30)
[2018-04-14 09:49] LABS: ERYTHROCYTE SEDIMENTATION RATE 75 mm/Hr (0-20)
[2018-04-14] MEDS: ACETAMINOPHEN 325 MG TAB PO (10:18)
[2018-04-14] MEDS: DAPTOMYCIN 700 MG in SOD CHLORIDE 0.9% 100 ML IVPB (17:12)
== END 2018-04-14 18:47 | disposition home health service (06) | DRG 981 ==
LOC: PP2 20:38
PROC: 0KBW0ZZ Excision of Left Foot Muscle, Open Approach (ICD-10-PCS; principal; 2018-04-08 17:00)
PROC: 0LBW0ZZ Excision of Left Foot Tendon, Open Approach (ICD-10-PCS; 2018-04-08 17:00)
PROC: 0KBW0ZZ Excision of Left Foot Muscle, Open Approach (ICD-10-PCS; 2018-04-08 17:26)
PROC: 0Y9N0ZZ Drainage of Left Foot, Open Approach (ICD-10-PCS; 2018-04-08 17:26)
PROC: 02HV33Z Insertion of Infusion Device into Superior Vena Cava, Percutaneous Approach (ICD-10-PCS; 2018-04-08 17:26)
DX: E11.621 Type 2 diabetes mellitus with foot ulcer (principal); A41.9 Sepsis, unspecified organism; L03.116 Cellulitis of left lower limb; L02.612 Cutaneous abscess of left foot; N17.9 Acute kidney failure, unspecified; I12.9 Hypertensive chronic kidney disease with stage 1 through stage 4 chronic kidney disease, or unspecified chronic kidney disease; E11.22 Type 2 diabetes mellitus with diabetic chronic kidney disease; N18.9 Chronic kidney disease, unspecified; E11.42 Type 2 diabetes mellitus with diabetic polyneuropathy; E11.65 Type 2 diabetes mellitus with hyperglycemia; E66.9 Obesity, unspecified; Z68.32 Body mass index [BMI] 32.0-32.9, adult
CPT/HCPCS: 36569; 71045; 73630-LT; 73700; 73718; 76775; 76937; 80048; 80053; 80061; 80069; 80202; 81001; 82550; 82947; 82962; 83036; 83605; 83735; 84100; 84443; 85025; 85651; 86140; 87040; 87070; 87081; 87086; 87102; 87116; 90686; 93922; 94640; 94664; 97110; 97116; 97161; 97530

== ENCOUNTER 2018-06-15 13:52 | Inpatient (IN) | payer BC ==
[2018-06-15] MEDS: VANCOMYCIN 1 GM (PMX) 250 ML IVPB (16:14)
[2018-06-15] MEDS: CEFEPIME 2GM/50 ML (PMX) 50 ML IVPB (16:14)
[2018-06-15 16:18] LABS: ADD MAN DIFF? NO
[2018-06-15 16:21] LABS: WHITE BLOOD COUNT 18.3 10^3/ul (4.8-10.8)
[2018-06-15 16:21] LABS: BASOPHIL # 0.1 10^3/ul (0.0-0.1); BASOPHILS % 0.3 % (0.0-2.0); EOSINOPHILS # 0.2 10^3/ul (0.0-0.5); EOSINOPHILS % 0.9 % (0.0-7.0); HEMATOCRIT 33.7 % (42.0-52.0); LYMPHOCYTES # 1.6 10^3/ul (0.8-2.9); LYMPHOCYTES % 8.9 % (15.0-51.0); MEAN CORPUSCULAR HEMOGLOBIN 28.2 pg (29.0-33.0); MEAN CORPUSCULAR HGB CONC 32.6 g/dl (32.0-37.0); MEAN CORPUSCULAR VOLUME 86.4 fl (82.0-101.0); MEAN PLATELET VOLUME 9.2 fl (7.4-10.4); MONOCYTE # 1.1 10^3/ul (0.3-0.9); MONOCYTES % 5.8 % (0.0-11.0); NEUTROPHIL # 15.2 10^3/ul (1.6-7.5); NEUTROPHILS % 83.4 % (39.0-77.0); PLATELET COUNT 417 10^3/UL (140-415); RED CELL DISTRIBUTION WIDTH 13.9 % (11.5-14.5)
[2018-06-15 16:43] LABS: ALANINE AMINOTRANSFERASE 17 IU/L (13-69); ALBUMIN 3.8 g/dl (3.3-4.9); ALKALINE PHOSPHATASE 79 IU/L (42-121); ANION GAP 14 (5-13); ASPARTATE AMINO TRANSFERASE 12 IU/L (15-46); BLOOD UREA NITROGEN 85 mg/dl (7-20); CALCIUM 10.3 mg/dl (8.4-10.2); CHLORIDE 119 mmol/L (97-110); CREATININE 2.23 mg/dl (0.61-1.24); Estimated GFR 31 mL/min (>60); GLUCOSE 206 mg/dl (70-220); POTASSIUM 4.7 mmol/L (3.5-5.1); SODIUM 140 mmol/L (135-144)
[2018-06-15 16:50] LABS: CARBON DIOXIDE 7 mmol/L (21-31)
[2018-06-15] MEDS: SOD CHLORIDE 0.9% 1,000 ML IV ×2 (18:25→22:26)
[2018-06-15] MEDS ORDERED: ACETAMINOPHEN 325 MG TAB PO (18:30)
[2018-06-15] MEDS ORDERED: ONDANSETRON 4 MG INJ IV (18:30)
[2018-06-15] MEDS ORDERED: NACL 0.9% 3 ML SYG IV (19:00)
[2018-06-15] MEDS: VANCOMYCIN 1 GM 250 ML IVPB ×2 (19:30→22:27)
[2018-06-15] MEDS ORDERED: VANCOMYCIN IV PER PHARMACY XX (19:30)
[2018-06-15 21:00] LABS: C-REACTIVE PROTEIN 15.7 mg/dl (0.0-0.9)
[2018-06-15] MEDS: HYDROCODONE/APAP (5/325) TAB PO (21:03)
[2018-06-15 21:39] LABS: ERYTHROCYTE SEDIMENTATION RATE 90 mm/Hr (0-20)
[2018-06-15] MEDS: HEPARIN 5,000 UNIT/1 ML VIAL SC (22:26)
[2018-06-15] MEDS: LEVOFLOXACIN 500MG/D5W (PMX) 100 ML IVPB (22:48)
[2018-06-15] MEDS: NA BICARBONATE 8.4% 50 ML SYG IV (22:53)
[2018-06-15] MEDS: FLUCONAZOLE 200 MG TAB PO (23:38)
[2018-06-16] MEDS ORDERED: VANCOMYCIN HCL 1.25 GM in SOD CHLORIDE 0.9% 250 ML IVPB (04:00)
[2018-06-16] MEDS: ONDANSETRON 4 MG INJ IV ×3 (05:06→17:19)
[2018-06-16 05:48] LABS: ADD MAN DIFF? NO
[2018-06-16 05:54] LABS: BASOPHILS % 0.2 % (0.0-2.0); EOSINOPHILS # 0.2 10^3/ul (0.0-0.5); EOSINOPHILS % 2.3 % (0.0-7.0); HEMATOCRIT 31.4 % (42.0-52.0); HEMOGLOBIN 10.2 g/dl (14.0-18.0); LYMPHOCYTES # 0.8 10^3/ul (0.8-2.9); LYMPHOCYTES % 7.5 % (15.0-51.0); MEAN CORPUSCULAR HEMOGLOBIN 27.8 pg (29.0-33.0); MEAN CORPUSCULAR HGB CONC 32.5 g/dl (32.0-37.0); MEAN CORPUSCULAR VOLUME 85.6 fl (82.0-101.0); MEAN PLATELET VOLUME 9.5 fl (7.4-10.4); MONOCYTE # 0.2 10^3/ul (0.3-0.9); MONOCYTES % 2.2 % (0.0-11.0); NEUTROPHIL # 9.2 10^3/ul (1.6-7.5); NEUTROPHILS % 87.4 % (39.0-77.0); PLATELET COUNT 386 10^3/UL (140-415); RED BLOOD COUNT 3.67 10^6/ul (4.70-6.10); RED CELL DISTRIBUTION WIDTH 13.9 % (11.5-14.5)
[2018-06-16 05:54] LABS: WHITE BLOOD COUNT 10.5 10^3/ul (4.8-10.8)
[2018-06-16 06:23] LABS: ALANINE AMINOTRANSFERASE 19 IU/L (13-69); ALBUMIN 3.2 g/dl (3.3-4.9); ALBUMIN/GLOBULIN RATIO 0.86; ALKALINE PHOSPHATASE 70 IU/L (42-121); ANION GAP 10 (5-13); ASPARTATE AMINO TRANSFERASE 16 IU/L (15-46); BLOOD UREA NITROGEN 83 mg/dl (7-20); CALCIUM 9.9 mg/dl (8.4-10.2); CHLORIDE 124 mmol/L (97-110); CREATININE 1.88 mg/dl (0.61-1.24); Estimated GFR 37 mL/min (>60); GLUCOSE 99 mg/dl (70-220); SODIUM 142 mmol/L (135-144); TOTAL PROTEIN 6.9 g/dl (6.1-8.1)
[2018-06-16 06:45] LABS: CARBON DIOXIDE 8 mmol/L (21-31)
[2018-06-16 06:49] LABS: HEMOGLOBIN A1C 9.2 % (0-5.9)
[2018-06-16] MEDS: FLUCONAZOLE 200 MG TAB PO (08:20)
[2018-06-16] MEDS: HEPARIN 5,000 UNIT/1 ML VIAL SC ×2 (08:22→20:12)
[2018-06-16 09:26] LABS: AADO2 Arterial 13.3 mmHg (7.0-24.0); Allen Test ACCEPTAB; Arterial Base Excess -17.8 mmol/L (-3.0-3); Arterial Blood Gas Oxygen Sat 97.4 mmHG (95.0-98.0); Arterial COHb 0.2 % (0.0-3.0); Arterial Fraction of Oxyhgb 96.8 % (93.0-99.0); Arterial HCO3 7.7 mmol/L (22.0-26.0); Arterial MetHb 0.4 % (0.0-1.5); Arterial pCO2 18.8 mmhg (35-45); MODE ROOM AIR; Site Left Radial
[2018-06-16 10:54] LABS: ADD UMIC YES; UR ASCORBIC ACID 40 mg/dL (NEGATIVE); UR BACTERIA FEW /HPF (NONE SEEN); UR BILIRUBIN (Dip) NEGATIVE (NEGATIVE); UR BLOOD (Dip) NEGATIVE (NEGATIVE); UR CLARITY CLEAR (CLEAR); UR COLOR YELLOW (YELLOW); UR GLUCOSE (Dip) NEGATIVE (NEGATIVE); UR KETONES (Dip) NEGATIVE (NEGATIVE); UR LEUKOCYTE ESTERASE (Dip) NEGATIVE Leu/ul (NEGATIVE); UR NITRITE (Dip) NEGATIVE (NEGATIVE); UR RBC 0 /HPF (0-5); UR SPECIFIC GRAVITY (Dip) 1.015 (1.003-1.030); UR TOTAL PROTEIN (Dip) 1+ mg/dl (NEGATIVE); UR UROBILINOGEN (Dip) NEGATIVE (NEGATIVE); UR WBC 1 /HPF (0-5)
[2018-06-16] MEDS: SODIUM BICARBONATE (IV ADD) 150 MEQ in DEXTROSE 5% 1,000 ML IV ×4 (11:06→23:50)
[2018-06-16 11:11] LABS: POTASSIUM,URINE RANDOM 50.9 mmol/L (25-125)
[2018-06-16 11:13] LABS: SODIUM,URINE RANDOM 51 mmol/L (30-90)
[2018-06-16 11:13] LABS: CREATININE,URINE RANDOM 77.28 mg/dl (20-370)
[2018-06-16] MEDS: INSULIN ASPART [NOVOLOG] 3 ML PEN SC ×5 (12:44→20:11)
[2018-06-16] MEDS: SODIUM HYPOCHLORITE (1/40) 1 APPLIC BTL IRR (15:02)
[2018-06-16 15:27] LABS: C-REACTIVE PROTEIN 19.6 mg/dl (0.0-0.9)
[2018-06-16 15:58] LABS: ERYTHROCYTE SEDIMENTATION RATE 72 mm/Hr (0-20)
[2018-06-16] MEDS ORDERED: VANCOMYCIN HCL 1.75 GM in SOD CHLORIDE 0.9% 500 ML IVPB (16:00)
[2018-06-16] MEDS: DAPTOMYCIN 650 MG in SOD CHLORIDE 0.9% 100 ML IVPB (16:27)
[2018-06-16] MEDS: HYDROCODONE/APAP (5/325) TAB PO (19:53)
[2018-06-16] MEDS: INSULIN GLARGINE [LANTus] (100 UNITS/ML) SYG SC (20:10)
[2018-06-16] MEDS: ALBUTEROL/IPRATROPIUM (NEB) 3 ML AMP HHN (20:23)
[2018-06-16] MEDS: LEVOFLOXACIN 500MG/D5W (PMX) 100 ML IVPB (23:12)
[2018-06-17 06:20] LABS: ADD UMIC NO; UR ASCORBIC ACID 40 mg/dL (NEGATIVE); UR BILIRUBIN (Dip) NEGATIVE (NEGATIVE); UR BLOOD (Dip) NEGATIVE (NEGATIVE); UR CLARITY CLEAR (CLEAR); UR COLOR YELLOW (YELLOW); UR GLUCOSE (Dip) NEGATIVE (NEGATIVE); UR KETONES (Dip) NEGATIVE (NEGATIVE); UR LEUKOCYTE ESTERASE (Dip) NEGATIVE Leu/ul (NEGATIVE); UR NITRITE (Dip) NEGATIVE (NEGATIVE); UR SPECIFIC GRAVITY (Dip) 1.016 (1.003-1.030); UR TOTAL PROTEIN (Dip) NEGATIVE (NEGATIVE); UR UROBILINOGEN (Dip) NEGATIVE (NEGATIVE)
[2018-06-17 06:36] LABS: ANION GAP 11 (5-13); BLOOD UREA NITROGEN 50 mg/dl (7-20); CALCIUM 9.5 mg/dl (8.4-10.2); CARBON DIOXIDE 15 mmol/L (21-31); CHLORIDE 117 mmol/L (97-110); CREATININE 1.32 mg/dl (0.61-1.24); Estimated GFR 56 mL/min (>60); GLUCOSE 204 mg/dl (70-220); POTASSIUM 3.3 mmol/L (3.5-5.1); SODIUM 143 mmol/L (135-144)
[2018-06-17] MEDS: INSULIN ASPART [NOVOLOG] 3 ML PEN SC ×4 (07:35→21:09)
[2018-06-17] MEDS: HEPARIN 5,000 UNIT/1 ML VIAL SC ×2 (08:52→20:59)
[2018-06-17] MEDS: FLUCONAZOLE 200 MG TAB PO (08:57)
[2018-06-17] MEDS: Insulin NOVOLOG SS MILD Algorithm (NPO/TPN/ENTERAL FEEDS) SC ×2 (08:58→13:05)
[2018-06-17] MEDS: SODIUM HYPOCHLORITE (1/40) 1 APPLIC BTL IRR (09:00)
[2018-06-17] MEDS ORDERED: INSULIN ASPART [NOVOLOG] 3 ML PEN SC (09:00)
[2018-06-17] MEDS: SODIUM BICARBONATE (IV ADD) 150 MEQ in DEXTROSE 5% 1,000 ML IV ×3 (09:33→19:01)
[2018-06-17] MEDS: ALBUTEROL/IPRATROPIUM (NEB) 3 ML AMP HHN (09:37)
[2018-06-17] MEDS: HYDROCODONE/APAP (5/325) TAB PO (11:42)
[2018-06-17] MEDS: ONDANSETRON 4 MG INJ IV (11:42)
[2018-06-17] MEDS: PANTOPRAZOLE 40 MG INJ IV (13:03)
[2018-06-17] MEDS: POTASSIUM CHLORIDE 100 ML IVPB (14:09)
[2018-06-17] MEDS ORDERED: SODIUM CL BACTERIOSTATIC 30 ML INJ (15:37)
[2018-06-17] MEDS ORDERED: GENTAMICIN 80 MG INJ (15:38)
[2018-06-17 15:41] LABS: CHLORIDE, RANDOM URINE 59 mmol/L (32-290)
[2018-06-17 15:49] LABS: C-REACTIVE PROTEIN 23.3 mg/dl (0.0-0.9)
[2018-06-17] MEDS: DAPTOMYCIN 650 MG in SOD CHLORIDE 0.9% 100 ML IVPB (16:00)
[2018-06-17] MEDS ORDERED: LIDOCAINE 2% (SDV) 5 ML INJ (16:19)
[2018-06-17] MEDS ORDERED: PROPOFOL 20 ML (16:19)
[2018-06-17] MEDS ORDERED: FENTAnyl 50 MCG/ML VIAL (16:21)
[2018-06-17] MEDS ORDERED: MIDAZOLAM 1 MG/ML 2 ML INJ (16:21)
[2018-06-17] MEDS ORDERED: METOCLOPRAMIDE 10 MG INJ (16:22)
[2018-06-17] MEDS ORDERED: DIPHENHYDRAMINE 50 MG INJ IV (16:30)
[2018-06-17] MEDS ORDERED: EPHEDrine SULFATE 50 MG/5 ML SYG IV (16:30)
[2018-06-17] MEDS ORDERED: MEPERIDINE 25 MG INJ IV (16:30)
[2018-06-17] MEDS ORDERED: ONDANSETRON 4 MG INJ IV (16:30)
[2018-06-17] MEDS ORDERED: FENTAnyl 50 MCG/ML VIAL IV (16:30)
[2018-06-17] MEDS ORDERED: HYDROmorphONE 1 MG/5 ML IV SYRINGE IV (16:30)
[2018-06-17] MEDS ORDERED: LABETALOL HCL 20MG INJ IV (16:30)
[2018-06-17] MEDS ORDERED: PROCHLORPERAZINE 10 MG INJ IV (16:30)
[2018-06-17] MEDS ORDERED: hydrALAzine 20 MG INJ IV (16:30)
[2018-06-17] MEDS ORDERED: PHENYLephrine (100 MCG/ML) 5ML SYG ×2 (16:50→17:20)
[2018-06-17] MEDS: POLYMYXIN B 500000 UNIT INJ (16:58)
[2018-06-17] MEDS ORDERED: ONDANSETRON 4 MG INJ (16:58)
[2018-06-17] MEDS: BACITRACIN 50000 UNITS INJ (16:58)
[2018-06-17] MEDS: LIDOCAINE 1% (MPF) 30 ML INJ (16:59)
[2018-06-17] MEDS ORDERED: FAMOTIDINE 20 MG INJ (16:59)
[2018-06-17] MEDS: INSULIN GLARGINE [LANTus] (100 UNITS/ML) SYG SC (20:12)
[2018-06-17] MEDS: LEVOFLOXACIN 500MG/D5W (PMX) 100 ML IVPB (21:38)
[2018-06-18] MEDS: SODIUM BICARBONATE (IV ADD) 150 MEQ in DEXTROSE 5% 1,000 ML IV (00:33)
[2018-06-18] MEDS: PANTOPRAZOLE 40 MG INJ IV (06:15)
[2018-06-18 06:22] LABS: ADD MAN DIFF? NO
[2018-06-18 06:29] LABS: WHITE BLOOD COUNT 14.2 10^3/ul (4.8-10.8)
[2018-06-18 06:29] LABS: BASOPHILS % 0.2 % (0.0-2.0); EOSINOPHILS # 0.1 10^3/ul (0.0-0.5); EOSINOPHILS % 0.5 % (0.0-7.0); HEMATOCRIT 26.6 % (42.0-52.0); HEMOGLOBIN 8.9 g/dl (14.0-18.0); LYMPHOCYTES # 1.2 10^3/ul (0.8-2.9); LYMPHOCYTES % 8.7 % (15.0-51.0); MEAN CORPUSCULAR HEMOGLOBIN 28.3 pg (29.0-33.0); MEAN CORPUSCULAR HGB CONC 33.5 g/dl (32.0-37.0); MEAN CORPUSCULAR VOLUME 84.7 fl (82.0-101.0); MEAN PLATELET VOLUME 9.5 fl (7.4-10.4); MONOCYTE # 0.9 10^3/ul (0.3-0.9); MONOCYTES % 6.3 % (0.0-11.0); NEUTROPHIL # 11.9 10^3/ul (1.6-7.5); NEUTROPHILS % 83.8 % (39.0-77.0); PLATELET COUNT 332 10^3/UL (140-415); RED BLOOD COUNT 3.14 10^6/ul (4.70-6.10)
[2018-06-18 06:57] LABS: ANION GAP 11 (5-13); BLOOD UREA NITROGEN 29 mg/dl (7-20); CALCIUM 8.8 mg/dl (8.4-10.2); CARBON DIOXIDE 21 mmol/L (21-31); CHLORIDE 109 mmol/L (97-110); CREATININE 1.15 mg/dl (0.61-1.24); Estimated GFR > 60 mL/min (>60); GLUCOSE 292 mg/dl (70-220); MAGNESIUM 1.5 mg/dl (1.7-2.5); PHOSPHORUS 3.1 mg/dl (2.5-4.9); POTASSIUM 3.1 mmol/L (3.5-5.1); SODIUM 141 mmol/L (135-144)
[2018-06-18 06:58] LABS: CREATINE KINASE 341 IU/L (23-200)
[2018-06-18] MEDS: SODIUM HYPOCHLORITE (1/40) 1 APPLIC BTL IRR (08:45)
[2018-06-18] MEDS: ONDANSETRON 4 MG INJ IV (08:49)
[2018-06-18] MEDS: FLUCONAZOLE 200 MG TAB PO (08:49)
[2018-06-18] MEDS: HEPARIN 5,000 UNIT/1 ML VIAL SC ×2 (08:52→20:35)
[2018-06-18] MEDS: INSULIN ASPART [NOVOLOG] 3 ML PEN SC ×7 (08:54→20:34)
[2018-06-18] MEDS: POTASSIUM CHLORIDE (SR) 20 MEQ TAB PO ×2 (09:34→17:31)
[2018-06-18] MEDS: MAGNESIUM SULFATE 2 GM/50 ML 50 ML IVPB (10:48)
[2018-06-18 16:24] LABS: C-REACTIVE PROTEIN 26.6 mg/dl (0.0-0.9)
[2018-06-18] MEDS: DAPTOMYCIN 650 MG in SOD CHLORIDE 0.9% 100 ML IVPB (16:33)
[2018-06-18 17:14] LABS: ERYTHROCYTE SEDIMENTATION RATE 85 mm/Hr (0-20)
[2018-06-18] MEDS: MAGNESIUM SULFATE 3 GM in DEXTROSE 5% 100 ML IVPB (17:29)
[2018-06-18] MEDS: CEFTRIAXONE 1 GM/50 ML (PMX) 50 ML IVPB (17:36)
[2018-06-18] MEDS ORDERED: DOCUSATE SODIUM 100 MG CAP PO (20:26)
[2018-06-18] MEDS ORDERED: POLYETHYLENE GLYCOL 17 GM PACKET (20:26)
[2018-06-18] MEDS: INSULIN GLARGINE [LANTus] (100 UNITS/ML) SYG SC (20:34)
[2018-06-18] MEDS: POLYETHYLENE GLYCOL 17 GM PACKET PO (20:35)
[2018-06-18] MEDS: DOCUSATE SODIUM 100 MG CAP PO (20:35)
[2018-06-18] MEDS: ZYVOX 600 MG TAB PO (20:35)
[2018-06-19] MEDS: INSULIN ASPART [NOVOLOG] 3 ML PEN SC ×9 (04:14→21:40)
[2018-06-19] MEDS: PANTOPRAZOLE 40 MG INJ IV (05:43)
[2018-06-19 05:57] LABS: ADD MAN DIFF? NO
[2018-06-19 06:07] LABS: WHITE BLOOD COUNT 14.4 10^3/ul (4.8-10.8)
[2018-06-19 06:07] LABS: BASOPHILS % 0.3 % (0.0-2.0); EOSINOPHILS # 0.2 10^3/ul (0.0-0.5); EOSINOPHILS % 1.5 % (0.0-7.0); HEMATOCRIT 25.7 % (42.0-52.0); HEMOGLOBIN 8.5 g/dl (14.0-18.0); LYMPHOCYTES # 1.5 10^3/ul (0.8-2.9); LYMPHOCYTES % 10.5 % (15.0-51.0); MEAN CORPUSCULAR HEMOGLOBIN 28.3 pg (29.0-33.0); MEAN CORPUSCULAR HGB CONC 33.1 g/dl (32.0-37.0); MEAN CORPUSCULAR VOLUME 85.7 fl (82.0-101.0); MEAN PLATELET VOLUME 9.1 fl (7.4-10.4); MONOCYTE # 0.9 10^3/ul (0.3-0.9); MONOCYTES % 6.1 % (0.0-11.0); NEUTROPHIL # 11.7 10^3/ul (1.6-7.5); NEUTROPHILS % 80.8 % (39.0-77.0); PLATELET COUNT 312 10^3/UL (140-415); RED CELL DISTRIBUTION WIDTH 13.5 % (11.5-14.5)
[2018-06-19 06:46] LABS: ANION GAP 10 (5-13); BLOOD UREA NITROGEN 20 mg/dl (7-20); CALCIUM 8.7 mg/dl (8.4-10.2); CARBON DIOXIDE 22 mmol/L (21-31); CHLORIDE 107 mmol/L (97-110); CREATININE 0.98 mg/dl (0.61-1.24); Estimated GFR > 60 mL/min (>60); GLUCOSE 292 mg/dl (70-220); MAGNESIUM 2.4 mg/dl (1.7-2.5); PHOSPHORUS 2.3 mg/dl (2.5-4.9); POTASSIUM 3.6 mmol/L (3.5-5.1); SODIUM 139 mmol/L (135-144)
[2018-06-19] MEDS: SODIUM HYPOCHLORITE (1/40) 1 APPLIC BTL IRR (07:54)
[2018-06-19] MEDS: HEPARIN 5,000 UNIT/1 ML VIAL SC ×2 (07:58→20:47)
[2018-06-19] MEDS: POLYETHYLENE GLYCOL 17 GM PACKET PO (08:00)
[2018-06-19] MEDS: ZYVOX 600 MG TAB PO ×2 (08:00→20:48)
[2018-06-19] MEDS: FLUCONAZOLE 200 MG TAB PO (08:00)
[2018-06-19] MEDS: DOCUSATE SODIUM 100 MG CAP PO ×2 (08:00→20:45)
[2018-06-19] MEDS: NEUTRA-PHOS 250 MG PACKET PO (10:00)
[2018-06-19] MEDS ORDERED: GLUCOSE GEL 15 GRAM TUBE BUCCAL (14:30)
[2018-06-19] MEDS ORDERED: GLUCAGON 1 MG INJ IM (14:30)
[2018-06-19] MEDS ORDERED: DEXTROSE 50% 50 ML SYRINGE IV ×2 (14:30)
[2018-06-19] MEDS ORDERED: GLUCOSE GEL 15 GRAM TUBE PO ×2 (14:30)
[2018-06-19] MEDS: CEFTRIAXONE 1 GM/50 ML (PMX) 50 ML IVPB (16:09)
[2018-06-19 17:04] LABS: C-REACTIVE PROTEIN 26.5 mg/dl (0.0-0.9)
[2018-06-19] MEDS: ACCU-CHEK XX ×2 (17:21→21:00)
[2018-06-19] MEDS: metFORMIN 500 MG TAB PO (17:28)
[2018-06-19 20:10] LABS: ERYTHROCYTE SEDIMENTATION RATE 90 mm/Hr (0-20)
[2018-06-19] MEDS: INSULIN GLARGINE [LANTus] (100 UNITS/ML) SYG SC (20:44)
[2018-06-20] MEDS: PANTOPRAZOLE 40 MG INJ IV (06:07)
[2018-06-20] MEDS: INSULIN ASPART [NOVOLOG] 3 ML PEN SC ×8 (06:12→21:11)
[2018-06-20] MEDS: ACCU-CHEK XX ×4 (07:30→20:55)
[2018-06-20] MEDS: FLUCONAZOLE 200 MG TAB PO (08:34)
[2018-06-20] MEDS: metFORMIN 500 MG TAB PO ×2 (08:34→18:13)
[2018-06-20] MEDS: ZYVOX 600 MG TAB PO ×2 (08:34→20:42)
[2018-06-20] MEDS: SODIUM HYPOCHLORITE (1/40) 1 APPLIC BTL IRR (09:00)
[2018-06-20] MEDS: DOCUSATE SODIUM 100 MG CAP PO ×2 (09:00→20:42)
[2018-06-20] MEDS: POLYETHYLENE GLYCOL 17 GM PACKET PO (09:00)
[2018-06-20 11:21] LABS: ADD MAN DIFF? NO
[2018-06-20 11:28] LABS: WHITE BLOOD COUNT 13.5 10^3/ul (4.8-10.8)
[2018-06-20 11:28] LABS: BASOPHILS % 0.3 % (0.0-2.0); EOSINOPHILS # 0.3 10^3/ul (0.0-0.5); EOSINOPHILS % 2.3 % (0.0-7.0); HEMATOCRIT 26.9 % (42.0-52.0); HEMOGLOBIN 8.7 g/dl (14.0-18.0); LYMPHOCYTES # 1.4 10^3/ul (0.8-2.9); LYMPHOCYTES % 10.5 % (15.0-51.0); MEAN CORPUSCULAR HEMOGLOBIN 27.6 pg (29.0-33.0); MEAN CORPUSCULAR HGB CONC 32.3 g/dl (32.0-37.0); MEAN CORPUSCULAR VOLUME 85.4 fl (82.0-101.0); MEAN PLATELET VOLUME 8.9 fl (7.4-10.4); MONOCYTE # 0.8 10^3/ul (0.3-0.9); MONOCYTES % 5.7 % (0.0-11.0); NEUTROPHIL # 10.9 10^3/ul (1.6-7.5); NEUTROPHILS % 80.7 % (39.0-77.0); PLATELET COUNT 327 10^3/UL (140-415); RED BLOOD COUNT 3.15 10^6/ul (4.70-6.10); RED CELL DISTRIBUTION WIDTH 13.2 % (11.5-14.5)
[2018-06-20 12:08] LABS: C-REACTIVE PROTEIN 22.5 mg/dl (0.0-0.9)
[2018-06-20 12:31] LABS: ERYTHROCYTE SEDIMENTATION RATE 100 mm/Hr (0-20)
[2018-06-20] MEDS: HEPARIN 5,000 UNIT/1 ML VIAL SC ×2 (15:06→20:48)
[2018-06-20] MEDS: ALBUTEROL/IPRATROPIUM (NEB) 3 ML AMP HHN (17:15)
[2018-06-20] MEDS: CEFTRIAXONE 1 GM/50 ML (PMX) 50 ML IVPB (18:13)
[2018-06-20] MEDS: INSULIN GLARGINE [LANTus] (100 UNITS/ML) SYG SC (20:48)
[2018-06-21] MEDS: INSULIN ASPART [NOVOLOG] 3 ML PEN SC ×9 (01:35→21:00)
[2018-06-21 06:34] LABS: ADD MAN DIFF? NO
[2018-06-21 06:37] LABS: WHITE BLOOD COUNT 10.7 10^3/ul (4.8-10.8)
[2018-06-21 06:37] LABS: BASOPHIL # 0.1 10^3/ul (0.0-0.1); BASOPHILS % 0.5 % (0.0-2.0); EOSINOPHILS # 0.4 10^3/ul (0.0-0.5); EOSINOPHILS % 3.4 % (0.0-7.0); HEMATOCRIT 27.4 % (42.0-52.0); HEMOGLOBIN 8.9 g/dl (14.0-18.0); LYMPHOCYTES % 19.1 % (15.0-51.0); MEAN CORPUSCULAR HEMOGLOBIN 27.9 pg (29.0-33.0); MEAN CORPUSCULAR HGB CONC 32.5 g/dl (32.0-37.0); MEAN CORPUSCULAR VOLUME 85.9 fl (82.0-101.0); MEAN PLATELET VOLUME 8.9 fl (7.4-10.4); MONOCYTE # 0.6 10^3/ul (0.3-0.9); MONOCYTES % 5.6 % (0.0-11.0); NEUTROPHIL # 7.6 10^3/ul (1.6-7.5); NEUTROPHILS % 70.7 % (39.0-77.0); PLATELET COUNT 349 10^3/UL (140-415); RED BLOOD COUNT 3.19 10^6/ul (4.70-6.10); RED CELL DISTRIBUTION WIDTH 13.1 % (11.5-14.5)
[2018-06-21] MEDS: PANTOPRAZOLE 40 MG INJ IV (06:56)
[2018-06-21 07:08] LABS: ANION GAP 13 (5-13); BLOOD UREA NITROGEN 19 mg/dl (7-20); CALCIUM 8.9 mg/dl (8.4-10.2); CARBON DIOXIDE 21 mmol/L (21-31); CHLORIDE 103 mmol/L (97-110); CREATININE 0.94 mg/dl (0.61-1.24); Estimated GFR > 60 mL/min (>60); GLUCOSE 189 mg/dl (70-220); MAGNESIUM 1.9 mg/dl (1.7-2.5); PHOSPHORUS 2.8 mg/dl (2.5-4.9); POTASSIUM 3.8 mmol/L (3.5-5.1); SODIUM 137 mmol/L (135-144)
[2018-06-21] MEDS: ACCU-CHEK XX ×4 (07:30→21:00)
[2018-06-21] MEDS: FLUCONAZOLE 200 MG TAB PO (08:17)
[2018-06-21] MEDS: ZYVOX 600 MG TAB PO ×2 (08:17→21:10)
[2018-06-21] MEDS: metFORMIN 500 MG TAB PO ×2 (08:17→17:21)
[2018-06-21] MEDS: POLYETHYLENE GLYCOL 17 GM PACKET PO (08:20)
[2018-06-21] MEDS: DOCUSATE SODIUM 100 MG CAP PO ×2 (08:20→21:10)
[2018-06-21] MEDS: HEPARIN 5,000 UNIT/1 ML VIAL SC ×2 (08:20→21:00)
[2018-06-21] MEDS: SODIUM HYPOCHLORITE (1/40) 1 APPLIC BTL IRR (08:24)
[2018-06-21 08:55] LABS: C-REACTIVE PROTEIN 20.6 mg/dl (0.0-0.9); ERYTHROCYTE SEDIMENTATION RATE 109 mm/Hr (0-20)
[2018-06-21] MEDS: CEFTRIAXONE 1 GM/50 ML (PMX) 50 ML IVPB (17:20)
[2018-06-21] MEDS: INSULIN GLARGINE [LANTus] (100 UNITS/ML) SYG SC (21:14)
[2018-06-22] MEDS: ONDANSETRON 4 MG INJ IV (00:37)
[2018-06-22] MEDS: INSULIN ASPART [NOVOLOG] 3 ML PEN SC ×9 (01:47→21:00)
[2018-06-22] MEDS ORDERED: ACCU-CHEK XX (02:00)
[2018-06-22] MEDS: PANTOPRAZOLE 40 MG INJ IV (05:59)
[2018-06-22] MEDS: metFORMIN 500 MG TAB PO ×2 (08:00→17:38)
[2018-06-22] MEDS: ACCU-CHEK XX ×4 (08:06→21:00)
[2018-06-22] MEDS: ZYVOX 600 MG TAB PO ×2 (08:07→21:42)
[2018-06-22] MEDS: DOCUSATE SODIUM 100 MG CAP PO ×2 (08:07→21:42)
[2018-06-22] MEDS: FLUCONAZOLE 200 MG TAB PO (08:07)
[2018-06-22] MEDS: POLYETHYLENE GLYCOL 17 GM PACKET PO (08:07)
[2018-06-22] MEDS: HEPARIN 5,000 UNIT/1 ML VIAL SC ×2 (08:08→21:42)
[2018-06-22] MEDS ORDERED: IODIXANOL LOCM 100 ML BTL (12:35)
[2018-06-22] MEDS ORDERED: LIDOCAINE 1% (MDV) 20 ML INJ (12:35)
[2018-06-22] MEDS ORDERED: MIDAZOLAM 1 MG/ML 2 ML INJ (12:36)
[2018-06-22] MEDS ORDERED: SOD CHLORIDE 0.9% 500 ML (12:36)
[2018-06-22] MEDS ORDERED: FENTAnyl 50 MCG/ML VIAL (12:36)
[2018-06-22 13:00] LABS: C-REACTIVE PROTEIN 15.8 mg/dl (0.0-0.9)
[2018-06-22 13:23] LABS: ERYTHROCYTE SEDIMENTATION RATE 90 mm/Hr (0-20)
[2018-06-22] MEDS: CEFTRIAXONE 1 GM/50 ML (PMX) 50 ML IVPB (17:38)
[2018-06-22] MEDS: metroNIDAZOLE 500 MG TAB PO ×2 (17:38→23:40)
[2018-06-22] MEDS: SODIUM HYPOCHLORITE (1/40) 1 APPLIC BTL IRR (17:39)
[2018-06-22] MEDS: INSULIN GLARGINE [LANTus] (100 UNITS/ML) SYG SC (21:41)
[2018-06-23] MEDS: metroNIDAZOLE 500 MG TAB PO ×3 (05:40→17:49)
[2018-06-23] MEDS: PANTOPRAZOLE (EC) 40 MG TAB PO (05:40)
[2018-06-23 07:12] LABS: ADD MAN DIFF? NO; BASOPHIL # 0.1 10^3/ul (0.0-0.1); BASOPHILS % 0.5 % (0.0-2.0); EOSINOPHILS # 0.3 10^3/ul (0.0-0.5); HEMATOCRIT 28.5 % (42.0-52.0); HEMOGLOBIN 9.2 g/dl (14.0-18.0); LYMPHOCYTES # 1.9 10^3/ul (0.8-2.9); LYMPHOCYTES % 18.9 % (15.0-51.0); MEAN CORPUSCULAR HEMOGLOBIN 27.7 pg (29.0-33.0); MEAN CORPUSCULAR HGB CONC 32.3 g/dl (32.0-37.0); MEAN CORPUSCULAR VOLUME 85.8 fl (82.0-101.0); MEAN PLATELET VOLUME 8.8 fl (7.4-10.4); MONOCYTE # 0.6 10^3/ul (0.3-0.9); MONOCYTES % 6.3 % (0.0-11.0); NEUTROPHIL # 7.1 10^3/ul (1.6-7.5); NEUTROPHILS % 70.5 % (39.0-77.0); PLATELET COUNT 337 10^3/UL (140-415); RED BLOOD COUNT 3.32 10^6/ul (4.70-6.10); RED CELL DISTRIBUTION WIDTH 13.1 % (11.5-14.5)
[2018-06-23 07:33] LABS: ANION GAP 11 (5-13); BLOOD UREA NITROGEN 19 mg/dl (7-20); CALCIUM 9.1 mg/dl (8.4-10.2); CARBON DIOXIDE 20 mmol/L (21-31); CHLORIDE 106 mmol/L (97-110); CREATININE 1.03 mg/dl (0.61-1.24); Estimated GFR > 60 mL/min (>60); GLUCOSE 120 mg/dl (70-220); SODIUM 137 mmol/L (135-144)
[2018-06-23] MEDS: INSULIN ASPART [NOVOLOG] 3 ML PEN SC ×7 (08:00→21:00)
[2018-06-23] MEDS: ACCU-CHEK XX ×4 (08:17→21:00)
[2018-06-23] MEDS: HEPARIN 5,000 UNIT/1 ML VIAL SC ×2 (08:26→20:42)
[2018-06-23] MEDS: POLYETHYLENE GLYCOL 17 GM PACKET PO ×3 (08:27→08:51)
[2018-06-23] MEDS: ZYVOX 600 MG TAB PO ×2 (08:27→20:39)
[2018-06-23] MEDS: metFORMIN 500 MG TAB PO ×2 (08:27→17:49)
[2018-06-23] MEDS: DOCUSATE SODIUM 100 MG CAP PO ×2 (08:27→20:39)
[2018-06-23] MEDS: SODIUM HYPOCHLORITE (1/40) 1 APPLIC BTL IRR (09:02)
[2018-06-23] MEDS: CEFTRIAXONE 1 GM/50 ML (PMX) 50 ML IVPB (18:14)
[2018-06-23] MEDS: INSULIN GLARGINE [LANTus] (100 UNITS/ML) SYG SC (20:43)
[2018-06-23] MEDS: ZOLPIDEM 5 MG TAB PO (23:16)
[2018-06-24] MEDS: metroNIDAZOLE 500 MG TAB PO ×5 (00:41→23:08)
[2018-06-24 06:50] LABS: PROTIME 14.3 Sec (11.9-14.9); PT RATIO 1.1
[2018-06-24 06:52] LABS: ANION GAP 10 (5-13); BLOOD UREA NITROGEN 24 mg/dl (7-20); CARBON DIOXIDE 20 mmol/L (21-31); CHLORIDE 104 mmol/L (97-110); CREATININE 1.14 mg/dl (0.61-1.24); Estimated GFR > 60 mL/min (>60); GLUCOSE 108 mg/dl (70-220); POTASSIUM 3.9 mmol/L (3.5-5.1); SODIUM 134 mmol/L (135-144)
[2018-06-24] MEDS: PANTOPRAZOLE (EC) 40 MG TAB PO (06:57)
[2018-06-24] MEDS: ACCU-CHEK XX ×4 (07:30→21:00)
[2018-06-24] MEDS: INSULIN ASPART [NOVOLOG] 3 ML PEN SC ×7 (07:35→21:00)
[2018-06-24] MEDS: metFORMIN 500 MG TAB PO ×2 (08:00→17:13)
[2018-06-24] MEDS: DOCUSATE SODIUM 100 MG CAP PO ×2 (08:38→21:58)
[2018-06-24] MEDS: HEPARIN 5,000 UNIT/1 ML VIAL SC ×2 (08:39→21:00)
[2018-06-24] MEDS: POLYETHYLENE GLYCOL 17 GM PACKET PO (08:39)
[2018-06-24] MEDS: ZYVOX 600 MG TAB PO ×2 (09:00→21:58)
[2018-06-24] MEDS: SODIUM HYPOCHLORITE (1/40) 1 APPLIC BTL IRR (09:00)
[2018-06-24 10:36] LABS: C-REACTIVE PROTEIN 8.7 mg/dl (0.0-0.9)
[2018-06-24 11:41] LABS: ERYTHROCYTE SEDIMENTATION RATE 110 mm/Hr (0-20)
[2018-06-24] MEDS: ONDANSETRON 4 MG INJ IV (13:06)
[2018-06-24] MEDS: LIDOCAINE 1% (MPF) 5 ML VIAL SC (14:44)
[2018-06-24] MEDS: CEFTRIAXONE 1 GM/50 ML (PMX) 50 ML IVPB (17:19)
[2018-06-24] MEDS ORDERED: ROCURONIUM 50 MG INJ (17:57)
[2018-06-24] MEDS ORDERED: PROPOFOL 100 ML (17:57)
[2018-06-24] MEDS ORDERED: CEFAZOLIN 1 GM INJ (17:57)
[2018-06-24] MEDS ORDERED: MIDAZOLAM 1 MG/ML 2 ML INJ (17:58)
[2018-06-24] MEDS ORDERED: ROPIVACAINE 0.5 % 30 ML VIAL (17:58)
[2018-06-24] MEDS ORDERED: MEPERIDINE 25 MG INJ IV ×2 (18:00→19:00)
[2018-06-24] MEDS ORDERED: HYDROmorphONE 1 MG/5 ML IV SYRINGE IV ×6 (18:00→19:00)
[2018-06-24] MEDS ORDERED: OXYCODONE/ACETAMINOPHEN (5/325) TAB PO ×3 (18:00→19:00)
[2018-06-24] MEDS ORDERED: ONDANSETRON 4 MG INJ IV ×2 (18:00→19:00)
[2018-06-24] MEDS ORDERED: EPHEDrine SULFATE 50 MG/5 ML SYG IV ×2 (18:00→19:00)
[2018-06-24] MEDS ORDERED: FENTAnyl 50 MCG/ML VIAL IV ×6 (18:00→19:00)
[2018-06-24] MEDS ORDERED: LABETALOL HCL 20MG INJ IV ×2 (18:00→19:00)
[2018-06-24] MEDS ORDERED: DIPHENHYDRAMINE 50 MG INJ IV ×2 (18:00→19:00)
[2018-06-24] MEDS ORDERED: hydrALAzine 20 MG INJ IV ×2 (18:00→19:00)
[2018-06-24] MEDS ORDERED: METOCLOPRAMIDE 10 MG INJ IV ×2 (18:00→19:00)
[2018-06-24] MEDS ORDERED: PHENYLephrine (100 MCG/ML) 10ML SYG (18:26)
[2018-06-24] MEDS ORDERED: DEXAMETHASONE 4 MG/ML 5 ML INJ (18:55)
[2018-06-24] MEDS ORDERED: ONDANSETRON 4 MG INJ (18:55)
[2018-06-24] MEDS ORDERED: METOCLOPRAMIDE 10 MG INJ (18:55)
[2018-06-24] MEDS: BACITRACIN 50000 UNITS INJ (19:16)
[2018-06-24] MEDS ORDERED: NEOSTIGMINE 3 MG/3 ML SYRINGE (19:48)
[2018-06-24] MEDS ORDERED: GLYCOPYRROLATE 0.4 MG INJ (19:48)
[2018-06-24] MEDS ORDERED: VANCOMYCIN 1 GM INJ (19:48)
[2018-06-24] MEDS: INSULIN GLARGINE [LANTus] (100 UNITS/ML) SYG SC (21:59)
[2018-06-25] MEDS ORDERED: INSULIN ASPART [NOVOLOG] 3 ML PEN SC (01:00)
[2018-06-25] MEDS: ACCU-CHEK XX ×5 (01:03→20:27)
[2018-06-25] MEDS: PANTOPRAZOLE (EC) 40 MG TAB PO ×2 (05:17→08:07)
[2018-06-25] MEDS: metroNIDAZOLE 500 MG TAB PO ×4 (05:17→23:43)
[2018-06-25 05:55] LABS: ADD MAN DIFF? NO
[2018-06-25] MEDS ORDERED: PANTOPRAZOLE 40 MG INJ IV (06:00)
[2018-06-25 06:39] LABS: ANION GAP 14 (5-13); BLOOD UREA NITROGEN 29 mg/dl (7-20); CALCIUM 8.8 mg/dl (8.4-10.2); CARBON DIOXIDE 14 mmol/L (21-31); CHLORIDE 108 mmol/L (97-110); CREATININE 1.09 mg/dl (0.61-1.24); Estimated GFR > 60 mL/min (>60); GLUCOSE 324 mg/dl (70-220); POTASSIUM 5.5 mmol/L (3.5-5.1); SODIUM 136 mmol/L (135-144)
[2018-06-25] MEDS: INSULIN ASPART [NOVOLOG] 3 ML PEN SC ×7 (08:04→20:18)
[2018-06-25] MEDS: HEPARIN 5,000 UNIT/1 ML VIAL SC ×2 (08:06→20:16)
[2018-06-25] MEDS: metFORMIN 500 MG TAB PO ×2 (08:07→17:26)
[2018-06-25] MEDS: ZYVOX 600 MG TAB PO ×2 (08:07→20:15)
[2018-06-25] MEDS: DOCUSATE SODIUM 100 MG CAP PO ×2 (08:07→20:16)
[2018-06-25] MEDS: SODIUM HYPOCHLORITE (1/40) 1 APPLIC BTL IRR (08:08)
[2018-06-25] MEDS: FLUCONAZOLE 200 MG TAB PO (08:11)
[2018-06-25] MEDS: POLYETHYLENE GLYCOL 17 GM PACKET PO (08:14)
[2018-06-25 11:58] LABS: ANION GAP 11 (5-13); BLOOD UREA NITROGEN 31 mg/dl (7-20); CALCIUM 8.7 mg/dl (8.4-10.2); CARBON DIOXIDE 16 mmol/L (21-31); CHLORIDE 102 mmol/L (97-110); CREATININE 1.18 mg/dl (0.61-1.24); GLUCOSE 384 mg/dl (70-220); PHOSPHORUS 3.6 mg/dl (2.5-4.9); POTASSIUM 4.5 mmol/L (3.5-5.1); SODIUM 129 mmol/L (135-144)
[2018-06-25 12:25] LABS: WHITE BLOOD COUNT 12.9 10^3/ul (4.8-10.8)
[2018-06-25 12:25] LABS: BASOPHILS % 0.2 % (0.0-2.0); HEMATOCRIT 27.1 % (42.0-52.0); HEMOGLOBIN 8.7 g/dl (14.0-18.0); LYMPHOCYTES % 7.8 % (15.0-51.0); MEAN CORPUSCULAR HEMOGLOBIN 27.9 pg (29.0-33.0); MEAN CORPUSCULAR HGB CONC 32.1 g/dl (32.0-37.0); MEAN CORPUSCULAR VOLUME 86.9 fl (82.0-101.0); MEAN PLATELET VOLUME 9.3 fl (7.4-10.4); MONOCYTE # 0.8 10^3/ul (0.3-0.9); NEUTROPHILS % 84.9 % (39.0-77.0); PLATELET COUNT 332 10^3/UL (140-415); RED BLOOD COUNT 3.12 10^6/ul (4.70-6.10); RED CELL DISTRIBUTION WIDTH 12.9 % (11.5-14.5)
[2018-06-25] MEDS: CEFTRIAXONE 1 GM/50 ML (PMX) 50 ML IVPB (17:23)
[2018-06-25] MEDS: LINAGLIPTIN 5 MG TABLET PO (20:16)
[2018-06-25] MEDS: SOD CHLORIDE 0.9% 1,000 ML IV (20:19)
[2018-06-25] MEDS: INSULIN GLARGINE [LANTus] (100 UNITS/ML) SYG SC (20:19)
[2018-06-26] MEDS: ACCU-CHEK XX ×5 (02:35→20:56)
[2018-06-26] MEDS: ZOLPIDEM 5 MG TAB PO (02:40)
[2018-06-26] MEDS: INSULIN ASPART [NOVOLOG] 3 ML PEN SC ×8 (02:45→20:49)
[2018-06-26 05:55] LABS: ANION GAP 7 (5-13); BLOOD UREA NITROGEN 32 mg/dl (7-20); CALCIUM 8.4 mg/dl (8.4-10.2); CARBON DIOXIDE 19 mmol/L (21-31); CHLORIDE 105 mmol/L (97-110); CREATININE 1.17 mg/dl (0.61-1.24); Estimated GFR > 60 mL/min (>60); GLUCOSE 278 mg/dl (70-220); MAGNESIUM 1.7 mg/dl (1.7-2.5); PHOSPHORUS 2.5 mg/dl (2.5-4.9); SODIUM 131 mmol/L (135-144)
[2018-06-26] MEDS: metroNIDAZOLE 500 MG TAB PO ×4 (06:56→23:44)
[2018-06-26] MEDS: SODIUM HYPOCHLORITE (1/40) 1 APPLIC BTL IRR (08:02)
[2018-06-26] MEDS: HEPARIN 5,000 UNIT/1 ML VIAL SC ×2 (08:59→20:45)
[2018-06-26] MEDS: DOCUSATE SODIUM 100 MG CAP PO ×2 (09:00→20:48)
[2018-06-26] MEDS: metFORMIN 500 MG TAB PO ×2 (09:00→17:58)
[2018-06-26] MEDS: POLYETHYLENE GLYCOL 17 GM PACKET PO (09:00)
[2018-06-26] MEDS: FLUCONAZOLE 200 MG TAB PO (09:00)
[2018-06-26] MEDS: PANTOPRAZOLE (EC) 40 MG TAB PO (09:01)
[2018-06-26] MEDS: ZYVOX 600 MG TAB PO ×2 (09:01→20:45)
[2018-06-26] MEDS: LINAGLIPTIN 5 MG TABLET PO (09:01)
[2018-06-26] MEDS ORDERED: VITAMIN A & D 5 GM OINT PACKET TOP (09:20)
[2018-06-26] MEDS: CEFTRIAXONE 1 GM/50 ML (PMX) 50 ML IVPB (17:57)
[2018-06-26] MEDS: INSULIN GLARGINE [LANTus] (100 UNITS/ML) SYG SC (20:00)
[2018-06-26] MEDS: ONDANSETRON 4 MG INJ IV (23:47)
[2018-06-27] MEDS: ZOLPIDEM 5 MG TAB PO (00:36)
[2018-06-27] MEDS: ACCU-CHEK XX ×5 (01:17→21:00)
[2018-06-27] MEDS: metroNIDAZOLE 500 MG TAB PO ×3 (05:57→17:26)
[2018-06-27 06:09] LABS: ADD MAN DIFF? NO
[2018-06-27 06:12] LABS: WHITE BLOOD COUNT 10.4 10^3/ul (4.8-10.8)
[2018-06-27 06:12] LABS: BASOPHILS % 0.4 % (0.0-2.0); EOSINOPHILS # 0.2 10^3/ul (0.0-0.5); EOSINOPHILS % 2.1 % (0.0-7.0); HEMATOCRIT 25.7 % (42.0-52.0); HEMOGLOBIN 8.2 g/dl (14.0-18.0); LYMPHOCYTES # 2.6 10^3/ul (0.8-2.9); LYMPHOCYTES % 25.3 % (15.0-51.0); MEAN CORPUSCULAR HEMOGLOBIN 28.2 pg (29.0-33.0); MEAN CORPUSCULAR HGB CONC 31.9 g/dl (32.0-37.0); MEAN CORPUSCULAR VOLUME 88.3 fl (82.0-101.0); MONOCYTE # 0.7 10^3/ul (0.3-0.9); MONOCYTES % 6.8 % (0.0-11.0); NEUTROPHIL # 6.7 10^3/ul (1.6-7.5); NEUTROPHILS % 64.2 % (39.0-77.0); PLATELET COUNT 324 10^3/UL (140-415); RED BLOOD COUNT 2.91 10^6/ul (4.70-6.10); RED CELL DISTRIBUTION WIDTH 13.3 % (11.5-14.5)
[2018-06-27 06:31] LABS: ANION GAP 12 (5-13); BLOOD UREA NITROGEN 27 mg/dl (7-20); CALCIUM 8.4 mg/dl (8.4-10.2); CARBON DIOXIDE 18 mmol/L (21-31); CHLORIDE 107 mmol/L (97-110); CREATININE 1.05 mg/dl (0.61-1.24); Estimated GFR > 60 mL/min (>60); GLUCOSE 137 mg/dl (70-220); MAGNESIUM 1.5 mg/dl (1.7-2.5); PHOSPHORUS 2.9 mg/dl (2.5-4.9); POTASSIUM 4.2 mmol/L (3.5-5.1); SODIUM 137 mmol/L (135-144)
[2018-06-27] MEDS: INSULIN ASPART [NOVOLOG] 3 ML PEN SC ×7 (08:32→20:53)
[2018-06-27] MEDS: HEPARIN 5,000 UNIT/1 ML VIAL SC ×2 (08:33→20:57)
[2018-06-27] MEDS: DOCUSATE SODIUM 100 MG CAP PO ×2 (08:34→20:52)
[2018-06-27] MEDS: LINAGLIPTIN 5 MG TABLET PO (08:34)
[2018-06-27] MEDS: ZYVOX 600 MG TAB PO ×2 (08:34→20:52)
[2018-06-27] MEDS: FLUCONAZOLE 200 MG TAB PO (08:34)
[2018-06-27] MEDS: POLYETHYLENE GLYCOL 17 GM PACKET PO ×2 (08:35→08:39)
[2018-06-27] MEDS: metFORMIN 500 MG TAB PO ×2 (08:35→17:26)
[2018-06-27] MEDS: PANTOPRAZOLE (EC) 40 MG TAB PO (08:35)
[2018-06-27] MEDS: SODIUM HYPOCHLORITE (1/40) 1 APPLIC BTL IRR (08:39)
[2018-06-27] MEDS: MAGNESIUM SULFATE 2 GM/50 ML 50 ML IVPB (11:09)
[2018-06-27] MEDS: LACTOBACILLUS RHAMNOSUS CAP PO ×2 (11:09→17:26)
[2018-06-27 14:45] LABS: C-REACTIVE PROTEIN 2.9 mg/dl (0.0-0.9)
[2018-06-27 16:56] LABS: ERYTHROCYTE SEDIMENTATION RATE 70 mm/Hr (0-20)
[2018-06-27] MEDS: CEFTRIAXONE 1 GM/50 ML (PMX) 50 ML IVPB (17:27)
[2018-06-27] MEDS: INSULIN GLARGINE [LANTus] (100 UNITS/ML) SYG SC (20:00)
[2018-06-27] MEDS: traZODone 50 MG TAB PO (20:52)
[2018-06-28] MEDS: metroNIDAZOLE 500 MG TAB PO ×4 (00:17→17:52)
[2018-06-28] MEDS: ACCU-CHEK XX ×5 (01:03→21:00)
[2018-06-28 05:26] LABS: ADD MAN DIFF? NO
[2018-06-28 05:43] LABS: WHITE BLOOD COUNT 7.5 10^3/ul (4.8-10.8)
[2018-06-28 05:43] LABS: BASOPHILS % 0.5 % (0.0-2.0); EOSINOPHILS # 0.2 10^3/ul (0.0-0.5); EOSINOPHILS % 3.1 % (0.0-7.0); HEMATOCRIT 27.1 % (42.0-52.0); HEMOGLOBIN 8.5 g/dl (14.0-18.0); LYMPHOCYTES # 2.4 10^3/ul (0.8-2.9); LYMPHOCYTES % 32.4 % (15.0-51.0); MEAN CORPUSCULAR HEMOGLOBIN 27.7 pg (29.0-33.0); MEAN CORPUSCULAR HGB CONC 31.4 g/dl (32.0-37.0); MEAN CORPUSCULAR VOLUME 88.3 fl (82.0-101.0); MEAN PLATELET VOLUME 9.9 fl (7.4-10.4); MONOCYTE # 0.6 10^3/ul (0.3-0.9); MONOCYTES % 7.4 % (0.0-11.0); NEUTROPHIL # 4.2 10^3/ul (1.6-7.5); NEUTROPHILS % 55.4 % (39.0-77.0); PLATELET COUNT 292 10^3/UL (140-415); POSITIVE DIFF @See below; RED BLOOD COUNT 3.07 10^6/ul (4.70-6.10); RED CELL DISTRIBUTION WIDTH 13.5 % (11.5-14.5)
[2018-06-28] MEDS ORDERED: PANTOPRAZOLE (EC) 40 MG TAB PO (06:00)
[2018-06-28] MEDS: ONDANSETRON 4 MG INJ IV ×2 (06:05→18:04)
[2018-06-28 06:10] LABS: ALBUMIN 2.9 g/dl (3.3-4.9); ANION GAP 12 (5-13); BLOOD UREA NITROGEN 26 mg/dl (7-20); CALCIUM 8.6 mg/dl (8.4-10.2); CARBON DIOXIDE 18 mmol/L (21-31); CHLORIDE 106 mmol/L (97-110); CREATININE 0.98 mg/dl (0.61-1.24); GLUCOSE 139 mg/dl (70-220); MAGNESIUM 1.8 mg/dl (1.7-2.5); PHOSPHORUS 3.4 mg/dl (2.5-4.9); POTASSIUM 4.2 mmol/L (3.5-5.1); SODIUM 136 mmol/L (135-144)
[2018-06-28] MEDS: INSULIN ASPART [NOVOLOG] 3 ML PEN SC ×7 (08:58→21:00)
[2018-06-28] MEDS: HEPARIN 5,000 UNIT/1 ML VIAL SC ×2 (08:59→21:22)
[2018-06-28] MEDS: POLYETHYLENE GLYCOL 17 GM PACKET PO (09:00)
[2018-06-28] MEDS: SODIUM HYPOCHLORITE (1/40) 1 APPLIC BTL IRR (09:00)
[2018-06-28] MEDS: DOCUSATE SODIUM 100 MG CAP PO ×3 (09:00→21:00)
[2018-06-28] MEDS: LACTOBACILLUS RHAMNOSUS CAP PO ×3 (09:01→17:52)
[2018-06-28] MEDS: metFORMIN 500 MG TAB PO ×2 (09:02→17:53)
[2018-06-28] MEDS: FLUCONAZOLE 200 MG TAB PO (09:02)
[2018-06-28] MEDS: ZYVOX 600 MG TAB PO ×2 (09:02→21:22)
[2018-06-28] MEDS: LINAGLIPTIN 5 MG TABLET PO (09:02)
[2018-06-28] MEDS: PANTOPRAZOLE (EC) 40 MG TAB PO (09:02)
[2018-06-28] MEDS: CEFTRIAXONE 1 GM/50 ML (PMX) 50 ML IVPB (17:52)
[2018-06-28] MEDS: INSULIN GLARGINE [LANTus] (100 UNITS/ML) SYG SC (21:21)
[2018-06-28] MEDS: traZODone 50 MG TAB PO (21:22)
[2018-06-29] MEDS: metroNIDAZOLE 500 MG TAB PO ×4 (00:10→17:52)
[2018-06-29] MEDS: ACCU-CHEK XX ×5 (02:00→20:32)
[2018-06-29] MEDS: ONDANSETRON 4 MG INJ IV (08:36)
[2018-06-29] MEDS: INSULIN ASPART [NOVOLOG] 3 ML PEN SC ×7 (08:38→20:32)
[2018-06-29] MEDS: metFORMIN 500 MG TAB PO ×2 (08:39→17:52)
[2018-06-29] MEDS: POLYETHYLENE GLYCOL 17 GM PACKET PO ×2 (09:00→09:43)
[2018-06-29] MEDS: DOCUSATE SODIUM 100 MG CAP PO ×3 (09:00→20:07)
[2018-06-29] MEDS: SODIUM HYPOCHLORITE (1/40) 1 APPLIC BTL IRR (09:00)
[2018-06-29] MEDS: PANTOPRAZOLE (EC) 40 MG TAB PO (09:40)
[2018-06-29] MEDS: ZYVOX 600 MG TAB PO ×2 (09:40→20:07)
[2018-06-29] MEDS: LINAGLIPTIN 5 MG TABLET PO (09:41)
[2018-06-29] MEDS: FLUCONAZOLE 200 MG TAB PO (09:41)
[2018-06-29] MEDS: HEPARIN 5,000 UNIT/1 ML VIAL SC ×2 (09:42→20:10)
[2018-06-29] MEDS: LACTOBACILLUS RHAMNOSUS CAP PO ×3 (09:43→17:51)
[2018-06-29] MEDS: CEFTRIAXONE 1 GM/50 ML (PMX) 50 ML IVPB (17:52)
[2018-06-29] MEDS ORDERED: traZODone 50 MG TAB (19:49)
[2018-06-29] MEDS: traZODone 50 MG TAB PO (20:08)
[2018-06-29] MEDS: INSULIN GLARGINE [LANTus] (100 UNITS/ML) SYG SC (20:11)
[2018-06-30] MEDS: metroNIDAZOLE 500 MG TAB PO ×4 (00:53→17:27)
[2018-06-30] MEDS: ACCU-CHEK XX ×5 (02:00→20:41)
[2018-06-30 07:27] LABS: ADD MAN DIFF? NO
[2018-06-30 07:44] LABS: BASOPHIL # 0.1 10^3/ul (0.0-0.1); BASOPHILS % 0.7 % (0.0-2.0); EOSINOPHILS # 0.2 10^3/ul (0.0-0.5); HEMATOCRIT 28.5 % (42.0-52.0); LYMPHOCYTES # 2.5 10^3/ul (0.8-2.9); LYMPHOCYTES % 35.4 % (15.0-51.0); MEAN CORPUSCULAR HGB CONC 31.6 g/dl (32.0-37.0); MEAN CORPUSCULAR VOLUME 88.8 fl (82.0-101.0); MEAN PLATELET VOLUME 9.1 fl (7.4-10.4); MONOCYTE # 0.5 10^3/ul (0.3-0.9); MONOCYTES % 7.3 % (0.0-11.0); NEUTROPHIL # 3.7 10^3/ul (1.6-7.5); NEUTROPHILS % 52.2 % (39.0-77.0); PLATELET COUNT 375 10^3/UL (140-415); RED BLOOD COUNT 3.21 10^6/ul (4.70-6.10); RED CELL DISTRIBUTION WIDTH 13.9 % (11.5-14.5)
[2018-06-30 07:54] LABS: ALBUMIN 3.1 g/dl (3.3-4.9); ANION GAP 11 (5-13); BLOOD UREA NITROGEN 22 mg/dl (7-20); CALCIUM 9.1 mg/dl (8.4-10.2); CARBON DIOXIDE 18 mmol/L (21-31); CHLORIDE 108 mmol/L (97-110); CREATININE 1.16 mg/dl (0.61-1.24); GLUCOSE 110 mg/dl (70-220); MAGNESIUM 1.7 mg/dl (1.7-2.5); SODIUM 137 mmol/L (135-144)
[2018-06-30] MEDS: INSULIN ASPART [NOVOLOG] 3 ML PEN SC ×7 (08:00→20:41)
[2018-06-30] MEDS: SOD CHLORIDE 0.9% 500 ML IV (08:01)
[2018-06-30] MEDS: ONDANSETRON 4 MG INJ IV ×2 (08:26→15:20)
[2018-06-30] MEDS: DOCUSATE SODIUM 100 MG CAP PO ×2 (09:00→20:45)
[2018-06-30] MEDS: POLYETHYLENE GLYCOL 17 GM PACKET PO (09:00)
[2018-06-30] MEDS: SODIUM HYPOCHLORITE (1/40) 1 APPLIC BTL IRR (09:00)
[2018-06-30] MEDS: LINAGLIPTIN 5 MG TABLET PO (09:09)
[2018-06-30] MEDS: metFORMIN 500 MG TAB PO ×2 (09:09→17:27)
[2018-06-30] MEDS: PANTOPRAZOLE (EC) 40 MG TAB PO (09:09)
[2018-06-30] MEDS: LACTOBACILLUS RHAMNOSUS CAP PO ×3 (09:09→17:27)
[2018-06-30] MEDS: HEPARIN 5,000 UNIT/1 ML VIAL SC ×2 (09:11→20:40)
[2018-06-30] MEDS: ZYVOX 600 MG TAB PO ×2 (09:15→20:37)
[2018-06-30 15:01] LABS: C-REACTIVE PROTEIN 0.9 mg/dl (0.0-0.9)
[2018-06-30 15:33] LABS: ERYTHROCYTE SEDIMENTATION RATE 57 mm/Hr (0-20)
[2018-06-30] MEDS: CEFTRIAXONE 1 GM/50 ML (PMX) 50 ML IVPB (17:27)
[2018-06-30] MEDS: traZODone 50 MG TAB PO (20:37)
[2018-06-30] MEDS: INSULIN GLARGINE [LANTus] (100 UNITS/ML) SYG SC (20:38)
[2018-07-01] MEDS: metroNIDAZOLE 500 MG TAB PO ×3 (00:42→12:25)
[2018-07-01] MEDS: ACCU-CHEK XX ×5 (01:25→21:00)
[2018-07-01] MEDS: ONDANSETRON 4 MG INJ IV ×3 (07:55→20:58)
[2018-07-01] MEDS: LACTOBACILLUS RHAMNOSUS CAP PO ×3 (07:59→17:23)
[2018-07-01] MEDS: INSULIN ASPART [NOVOLOG] 3 ML PEN SC ×7 (08:00→21:00)
[2018-07-01] MEDS: ZYVOX 600 MG TAB PO (08:01)
[2018-07-01] MEDS: HEPARIN 5,000 UNIT/1 ML VIAL SC ×2 (08:01→21:05)
[2018-07-01] MEDS: LINAGLIPTIN 5 MG TABLET PO (08:01)
[2018-07-01] MEDS: POLYETHYLENE GLYCOL 17 GM PACKET PO ×2 (08:01→08:09)
[2018-07-01] MEDS: DOCUSATE SODIUM 100 MG CAP PO ×3 (08:02→21:02)
[2018-07-01] MEDS: metFORMIN 500 MG TAB PO ×2 (08:02→17:23)
[2018-07-01] MEDS: PANTOPRAZOLE (EC) 40 MG TAB PO (08:02)
[2018-07-01] MEDS: SODIUM HYPOCHLORITE (1/40) 1 APPLIC BTL IRR (08:03)
[2018-07-01] MEDS: ACETAMINOPHEN 325 MG TAB PO (12:34)
[2018-07-01] MEDS: ERTAPENEM SODIUM 1 GM in SOD CHLORIDE 0.9% 100 ML IVPB (16:17)
[2018-07-01] MEDS: DAPTOMYCIN 650 MG in SOD CHLORIDE 0.9% 100 ML IVPB (17:23)
[2018-07-01] MEDS: traZODone 50 MG TAB PO (21:03)
[2018-07-01] MEDS: INSULIN GLARGINE [LANTus] (100 UNITS/ML) SYG SC (21:04)
[2018-07-02] MEDS: ACCU-CHEK XX ×5 (02:00→20:22)
[2018-07-02 06:12] LABS: ADD MAN DIFF? NO
[2018-07-02 06:15] LABS: BASOPHIL # 0.1 10^3/ul (0.0-0.1); BASOPHILS % 0.7 % (0.0-2.0); EOSINOPHILS # 0.1 10^3/ul (0.0-0.5); EOSINOPHILS % 1.9 % (0.0-7.0); HEMATOCRIT 27.2 % (42.0-52.0); HEMOGLOBIN 8.5 g/dl (14.0-18.0); LYMPHOCYTES # 2.1 10^3/ul (0.8-2.9); LYMPHOCYTES % 30.1 % (15.0-51.0); MEAN CORPUSCULAR HEMOGLOBIN 28.1 pg (29.0-33.0); MEAN CORPUSCULAR HGB CONC 31.3 g/dl (32.0-37.0); MEAN CORPUSCULAR VOLUME 90.1 fl (82.0-101.0); MEAN PLATELET VOLUME 8.8 fl (7.4-10.4); MONOCYTE # 0.5 10^3/ul (0.3-0.9); NEUTROPHIL # 4.1 10^3/ul (1.6-7.5); PLATELET COUNT 369 10^3/UL (140-415); RED BLOOD COUNT 3.02 10^6/ul (4.70-6.10); RED CELL DISTRIBUTION WIDTH 14.8 % (11.5-14.5)
[2018-07-02 06:15] LABS: WHITE BLOOD COUNT 6.8 10^3/ul (4.8-10.8)
[2018-07-02 06:36] LABS: ANION GAP 12 (5-13); BLOOD UREA NITROGEN 22 mg/dl (7-20); CALCIUM 8.9 mg/dl (8.4-10.2); CARBON DIOXIDE 19 mmol/L (21-31); CHLORIDE 108 mmol/L (97-110); CREATININE 1.05 mg/dl (0.61-1.24); GLUCOSE 108 mg/dl (70-220); MAGNESIUM 1.7 mg/dl (1.7-2.5); PHOSPHORUS 3.5 mg/dl (2.5-4.9); POTASSIUM 4.2 mmol/L (3.5-5.1); SODIUM 139 mmol/L (135-144)
[2018-07-02] MEDS: ONDANSETRON 4 MG INJ IV ×2 (06:51→19:42)
[2018-07-02] MEDS: INSULIN ASPART [NOVOLOG] 3 ML PEN SC ×7 (08:00→20:21)
[2018-07-02] MEDS: SODIUM HYPOCHLORITE (1/40) 1 APPLIC BTL IRR (08:14)
[2018-07-02] MEDS: HEPARIN 5,000 UNIT/1 ML VIAL SC ×2 (08:46→21:09)
[2018-07-02] MEDS: PANTOPRAZOLE (EC) 40 MG TAB PO (08:49)
[2018-07-02] MEDS: LACTOBACILLUS RHAMNOSUS CAP PO ×3 (08:49→17:43)
[2018-07-02] MEDS: metFORMIN 500 MG TAB PO ×2 (08:49→17:43)
[2018-07-02] MEDS: POLYETHYLENE GLYCOL 17 GM PACKET PO (08:49)
[2018-07-02] MEDS: DOCUSATE SODIUM 100 MG CAP PO ×2 (08:49→21:00)
[2018-07-02] MEDS: LINAGLIPTIN 5 MG TABLET PO (08:50)
[2018-07-02] MEDS: ERTAPENEM SODIUM 1 GM in SOD CHLORIDE 0.9% 100 ML IVPB (15:55)
[2018-07-02] MEDS: DAPTOMYCIN 650 MG in SOD CHLORIDE 0.9% 100 ML IVPB (17:41)
[2018-07-02] MEDS: INSULIN GLARGINE [LANTus] (100 UNITS/ML) SYG SC (20:00)
[2018-07-02] MEDS: traZODone 50 MG TAB PO (21:08)
[2018-07-03] MEDS: ACCU-CHEK XX ×5 (01:45→20:54)
[2018-07-03] MEDS: INSULIN ASPART [NOVOLOG] 3 ML PEN SC ×6 (07:35→20:52)
[2018-07-03] MEDS: metFORMIN 500 MG TAB PO ×2 (08:08→17:14)
[2018-07-03] MEDS: PANTOPRAZOLE (EC) 40 MG TAB PO (08:12)
[2018-07-03 08:13] LABS: CREATINE KINASE 22 IU/L (23-200)
[2018-07-03] MEDS: LACTOBACILLUS RHAMNOSUS CAP PO ×3 (08:13→17:14)
[2018-07-03] MEDS: LINAGLIPTIN 5 MG TABLET PO (08:13)
[2018-07-03] MEDS: HEPARIN 5,000 UNIT/1 ML VIAL SC ×2 (08:16→21:25)
[2018-07-03] MEDS: SODIUM HYPOCHLORITE (1/40) 1 APPLIC BTL IRR (08:20)
[2018-07-03] MEDS: POLYETHYLENE GLYCOL 17 GM PACKET PO (08:21)
[2018-07-03] MEDS: DOCUSATE SODIUM 100 MG CAP PO ×2 (08:21→21:00)
[2018-07-03] MEDS: ERTAPENEM SODIUM 1 GM in SOD CHLORIDE 0.9% 100 ML IVPB (16:37)
[2018-07-03] MEDS: DAPTOMYCIN 650 MG in SOD CHLORIDE 0.9% 100 ML IVPB (17:11)
[2018-07-03] MEDS: ONDANSETRON 4 MG INJ IV (17:44)
[2018-07-03] MEDS: INSULIN GLARGINE [LANTus] (100 UNITS/ML) SYG SC (20:00)
[2018-07-03] MEDS ORDERED: INSULIN GLARGINE [LANTus] (100 UNITS/ML) SYG SC (20:00)
[2018-07-03] MEDS: traZODone 50 MG TAB PO (21:23)
[2018-07-04] MEDS: ACCU-CHEK XX ×5 (00:51→20:53)
[2018-07-04 06:12] LABS: ADD MAN DIFF? NO
[2018-07-04 06:38] LABS: BASOPHILS % 0.7 % (0.0-2.0); EOSINOPHILS # 0.2 10^3/ul (0.0-0.5); HEMATOCRIT 27.6 % (42.0-52.0); HEMOGLOBIN 8.8 g/dl (14.0-18.0); LYMPHOCYTES % 35.5 % (15.0-51.0); MEAN CORPUSCULAR HEMOGLOBIN 28.9 pg (29.0-33.0); MEAN CORPUSCULAR HGB CONC 31.9 g/dl (32.0-37.0); MEAN CORPUSCULAR VOLUME 90.5 fl (82.0-101.0); MEAN PLATELET VOLUME 8.8 fl (7.4-10.4); MONOCYTE # 0.5 10^3/ul (0.3-0.9); MONOCYTES % 8.4 % (0.0-11.0); NEUTROPHILS % 52.1 % (39.0-77.0); PLATELET COUNT 370 10^3/UL (140-415); RED BLOOD COUNT 3.05 10^6/ul (4.70-6.10); RED CELL DISTRIBUTION WIDTH 15.3 % (11.5-14.5)
[2018-07-04 06:38] LABS: WHITE BLOOD COUNT 5.7 10^3/ul (4.8-10.8)
[2018-07-04 06:53] LABS: ALBUMIN 3.1 g/dl (3.3-4.9); ANION GAP 7 (5-13); BLOOD UREA NITROGEN 20 mg/dl (7-20); CALCIUM 9.1 mg/dl (8.4-10.2); CARBON DIOXIDE 21 mmol/L (21-31); CHLORIDE 110 mmol/L (97-110); CREATININE 0.95 mg/dl (0.61-1.24); GLUCOSE 93 mg/dl (70-220); MAGNESIUM 1.7 mg/dl (1.7-2.5); PHOSPHORUS 3.3 mg/dl (2.5-4.9); POTASSIUM 4.1 mmol/L (3.5-5.1); SODIUM 138 mmol/L (135-144)
[2018-07-04] MEDS: INSULIN ASPART [NOVOLOG] 3 ML PEN SC ×4 (08:00→20:53)
[2018-07-04] MEDS: SODIUM HYPOCHLORITE (1/40) 1 APPLIC BTL IRR (08:28)
[2018-07-04] MEDS: LINAGLIPTIN 5 MG TABLET PO (08:33)
[2018-07-04] MEDS: LACTOBACILLUS RHAMNOSUS CAP PO ×3 (08:33→17:43)
[2018-07-04] MEDS: metFORMIN 500 MG TAB PO ×2 (08:33→17:43)
[2018-07-04] MEDS: DOCUSATE SODIUM 100 MG CAP PO ×2 (08:34→20:53)
[2018-07-04] MEDS: PANTOPRAZOLE (EC) 40 MG TAB PO (08:34)
[2018-07-04] MEDS: POLYETHYLENE GLYCOL 17 GM PACKET PO (08:34)
[2018-07-04] MEDS: HEPARIN 5,000 UNIT/1 ML VIAL SC ×2 (08:35→20:52)
[2018-07-04] MEDS: ERTAPENEM SODIUM 1 GM in SOD CHLORIDE 0.9% 100 ML IVPB (15:11)
[2018-07-04] MEDS: DAPTOMYCIN 650 MG in SOD CHLORIDE 0.9% 100 ML IVPB (16:01)
[2018-07-04] MEDS: INSULIN GLARGINE [LANTus] (100 UNITS/ML) SYG SC (20:00)
[2018-07-04] MEDS: traZODone 50 MG TAB PO (20:53)
[2018-07-05] MEDS: ACCU-CHEK XX ×5 (02:00→21:00)
[2018-07-05 06:05] LABS: ADD MAN DIFF? NO
[2018-07-05 06:14] LABS: BASOPHIL # 0.1 10^3/ul (0.0-0.1); EOSINOPHILS # 0.2 10^3/ul (0.0-0.5); EOSINOPHILS % 2.2 % (0.0-7.0); HEMATOCRIT 28.3 % (42.0-52.0); LYMPHOCYTES # 2.6 10^3/ul (0.8-2.9); LYMPHOCYTES % 35.3 % (15.0-51.0); MEAN CORPUSCULAR HEMOGLOBIN 28.4 pg (29.0-33.0); MEAN CORPUSCULAR HGB CONC 31.8 g/dl (32.0-37.0); MEAN CORPUSCULAR VOLUME 89.3 fl (82.0-101.0); MEAN PLATELET VOLUME 9.1 fl (7.4-10.4); MONOCYTE # 0.7 10^3/ul (0.3-0.9); NEUTROPHIL # 3.8 10^3/ul (1.6-7.5); NEUTROPHILS % 52.1 % (39.0-77.0); PLATELET COUNT 369 10^3/UL (140-415); RED BLOOD COUNT 3.17 10^6/ul (4.70-6.10); RED CELL DISTRIBUTION WIDTH 15.5 % (11.5-14.5)
[2018-07-05 06:14] LABS: WHITE BLOOD COUNT 7.3 10^3/ul (4.8-10.8)
[2018-07-05 07:30] LABS: ANION GAP 11 (5-13); BLOOD UREA NITROGEN 21 mg/dl (7-20); CALCIUM 9.2 mg/dl (8.4-10.2); CARBON DIOXIDE 22 mmol/L (21-31); CHLORIDE 106 mmol/L (97-110); CREATININE 0.96 mg/dl (0.61-1.24); Estimated GFR > 60 mL/min (>60); GLUCOSE 143 mg/dl (70-220); MAGNESIUM 1.7 mg/dl (1.7-2.5); PHOSPHORUS 3.4 mg/dl (2.5-4.9); POTASSIUM 4.1 mmol/L (3.5-5.1); SODIUM 139 mmol/L (135-144)
[2018-07-05] MEDS: INSULIN ASPART [NOVOLOG] 3 ML PEN SC ×4 (08:28→20:39)
[2018-07-05] MEDS: LACTOBACILLUS RHAMNOSUS CAP PO ×3 (08:28→17:28)
[2018-07-05] MEDS: metFORMIN 500 MG TAB PO ×2 (08:28→17:28)
[2018-07-05] MEDS: DOCUSATE SODIUM 100 MG CAP PO ×3 (08:58→20:43)
[2018-07-05] MEDS: LINAGLIPTIN 5 MG TABLET PO (08:58)
[2018-07-05] MEDS: PANTOPRAZOLE (EC) 40 MG TAB PO (08:58)
[2018-07-05] MEDS: HEPARIN 5,000 UNIT/1 ML VIAL SC ×2 (08:59→20:38)
[2018-07-05] MEDS: SODIUM HYPOCHLORITE (1/40) 1 APPLIC BTL IRR (09:00)
[2018-07-05] MEDS: POLYETHYLENE GLYCOL 17 GM PACKET PO (09:00)
[2018-07-05] MEDS: ERTAPENEM SODIUM 1 GM in SOD CHLORIDE 0.9% 100 ML IVPB (15:39)
[2018-07-05] MEDS: DAPTOMYCIN 650 MG in SOD CHLORIDE 0.9% 100 ML IVPB (16:51)
[2018-07-05] MEDS: traZODone 50 MG TAB PO (21:14)
[2018-07-06] MEDS: ACCU-CHEK XX ×5 (01:50→20:37)
[2018-07-06] MEDS: LACTOBACILLUS RHAMNOSUS CAP PO ×3 (08:12→18:00)
[2018-07-06] MEDS: metFORMIN 500 MG TAB PO ×2 (08:14→18:00)
[2018-07-06] MEDS: INSULIN ASPART [NOVOLOG] 3 ML PEN SC ×4 (08:15→20:27)
[2018-07-06] MEDS: LINAGLIPTIN 5 MG TABLET PO (08:17)
[2018-07-06] MEDS: SODIUM HYPOCHLORITE (1/40) 1 APPLIC BTL IRR (08:39)
[2018-07-06] MEDS: PANTOPRAZOLE (EC) 40 MG TAB PO (08:41)
[2018-07-06] MEDS: HEPARIN 5,000 UNIT/1 ML VIAL SC ×2 (08:42→20:28)
[2018-07-06] MEDS: DOCUSATE SODIUM 100 MG CAP PO ×2 (08:43→20:28)
[2018-07-06] MEDS: POLYETHYLENE GLYCOL 17 GM PACKET PO (08:43)
[2018-07-06 10:20] LABS: ERYTHROCYTE SEDIMENTATION RATE 50 mm/Hr (0-20)
[2018-07-06] MEDS: ERTAPENEM SODIUM 1 GM in SOD CHLORIDE 0.9% 100 ML IVPB (16:21)
[2018-07-06] MEDS: DAPTOMYCIN 650 MG in SOD CHLORIDE 0.9% 100 ML IVPB (17:46)
[2018-07-06] MEDS: traZODone 50 MG TAB PO (20:28)
[2018-07-07] MEDS: ACCU-CHEK XX ×4 (02:28→17:31)
[2018-07-07] MEDS: LACTOBACILLUS RHAMNOSUS CAP PO ×3 (07:59→16:43)
[2018-07-07] MEDS: INSULIN ASPART [NOVOLOG] 3 ML PEN SC ×3 (08:01→17:29)
[2018-07-07] MEDS: HEPARIN 5,000 UNIT/1 ML VIAL SC (08:01)
[2018-07-07] MEDS: PANTOPRAZOLE (EC) 40 MG TAB PO (08:02)
[2018-07-07] MEDS: LINAGLIPTIN 5 MG TABLET PO (08:02)
[2018-07-07] MEDS: metFORMIN 500 MG TAB PO ×2 (08:02→17:30)
[2018-07-07] MEDS: DOCUSATE SODIUM 100 MG CAP PO (08:03)
[2018-07-07] MEDS: SODIUM HYPOCHLORITE (1/40) 1 APPLIC BTL IRR (08:03)
[2018-07-07] MEDS: POLYETHYLENE GLYCOL 17 GM PACKET PO (08:03)
[2018-07-07 08:41] LABS: ADD MAN DIFF? NO
[2018-07-07 08:53] LABS: WHITE BLOOD COUNT 7.5 10^3/ul (4.8-10.8)
[2018-07-07 08:53] LABS: BASOPHIL # 0.1 10^3/ul (0.0-0.1); BASOPHILS % 0.9 % (0.0-2.0); EOSINOPHILS # 0.2 10^3/ul (0.0-0.5); EOSINOPHILS % 2.3 % (0.0-7.0); HEMATOCRIT 29.1 % (42.0-52.0); HEMOGLOBIN 9.3 g/dl (14.0-18.0); LYMPHOCYTES # 2.6 10^3/ul (0.8-2.9); MEAN CORPUSCULAR HEMOGLOBIN 28.3 pg (29.0-33.0); MEAN CORPUSCULAR VOLUME 88.4 fl (82.0-101.0); MEAN PLATELET VOLUME 9.2 fl (7.4-10.4); MONOCYTE # 0.6 10^3/ul (0.3-0.9); MONOCYTES % 8.5 % (0.0-11.0); NEUTROPHIL # 3.8 10^3/ul (1.6-7.5); NEUTROPHILS % 51.4 % (39.0-77.0); PLATELET COUNT 365 10^3/UL (140-415); RED BLOOD COUNT 3.29 10^6/ul (4.70-6.10); RED CELL DISTRIBUTION WIDTH 15.9 % (11.5-14.5)
[2018-07-07 09:20] LABS: ANION GAP 9 (5-13); BLOOD UREA NITROGEN 13 mg/dl (7-20); CALCIUM 9.2 mg/dl (8.4-10.2); CARBON DIOXIDE 21 mmol/L (21-31); CHLORIDE 109 mmol/L (97-110); CREATININE 0.86 mg/dl (0.61-1.24); Estimated GFR > 60 mL/min (>60); GLUCOSE 152 mg/dl (70-220); MAGNESIUM 1.6 mg/dl (1.7-2.5); PHOSPHORUS 3.5 mg/dl (2.5-4.9); POTASSIUM 3.7 mmol/L (3.5-5.1); SODIUM 139 mmol/L (135-144)
[2018-07-07] MEDS: MAGNESIUM OXIDE 400 MG TAB PO (10:49)
[2018-07-07 11:48] LABS: ERYTHROCYTE SEDIMENTATION RATE 46 mm/Hr (0-20)
[2018-07-07] MEDS: ERTAPENEM SODIUM 1 GM in SOD CHLORIDE 0.9% 100 ML IVPB (15:30)
[2018-07-07] MEDS: ZYVOX 600 MG TAB PO (16:43)
== END 2018-07-07 20:13 | DRG 616 ==
LOC: E/R 13:52 → PP2 18:55
PROVIDERS: Internal Medicine
PROC: 0Y6Y0Z0 Detachment at Left 5th Toe, Complete, Open Approach (ICD-10-PCS; principal; 2018-06-17 16:20)
PROC: 0KBW0ZZ Excision of Left Foot Muscle, Open Approach (ICD-10-PCS; 2018-06-17 16:20)
PROC: 0QBP0ZZ Excision of Left Metatarsal, Open Approach (ICD-10-PCS; 2018-06-17 16:20)
PROC: 0QBR0ZZ Excision of Left Toe Phalanx, Open Approach (ICD-10-PCS; 2018-06-17 16:20)
PROC: 0HRNXK3 Replacement of Left Foot Skin with Nonautologous Tissue Substitute, Full Thickness, External Approach (ICD-10-PCS; 2018-06-17 16:20)
PROC: 0SSN34Z Reposition Left Metatarsal-Phalangeal Joint with Internal Fixation Device, Percutaneous Approach (ICD-10-PCS; 2018-06-17 16:20)
PROC: 0YHN0YZ Insertion of Other Device into Left Foot, Open Approach (ICD-10-PCS; 2018-06-17 16:20)
PROC: 0KBW0ZZ Excision of Left Foot Muscle, Open Approach (ICD-10-PCS; 2018-06-17 16:20)
PROC: 0YHN0YZ Insertion of Other Device into Left Foot, Open Approach (ICD-10-PCS; 2018-06-17 16:20)
PROC: B41DYZZ Fluoroscopy of Aorta and Bilateral Lower Extremity Arteries using Other Contrast (ICD-10-PCS; 2018-06-17 16:20)
PROC: 02HV33Z Insertion of Infusion Device into Superior Vena Cava, Percutaneous Approach (ICD-10-PCS; 2018-06-17 16:20)
PROC: 0KBW0ZZ Excision of Left Foot Muscle, Open Approach (ICD-10-PCS; 2018-06-17 16:20)
DX: E11.69 Type 2 diabetes mellitus with other specified complication (principal); L89.893 Pressure ulcer of other site, stage 3; M86.172 Other acute osteomyelitis, left ankle and foot; E87.2 Acidosis; L97.526 Non-pressure chronic ulcer of other part of left foot with bone involvement without evidence of necrosis; L03.116 Cellulitis of left lower limb; E11.52 Type 2 diabetes mellitus with diabetic peripheral angiopathy with gangrene; I96 Gangrene, not elsewhere classified; E11.621 Type 2 diabetes mellitus with foot ulcer; E11.42 Type 2 diabetes mellitus with diabetic polyneuropathy; L97.529 Non-pressure chronic ulcer of other part of left foot with unspecified severity; N17.9 Acute kidney failure, unspecified; N25.89 Other disorders resulting from impaired renal tubular function; N14.0 Analgesic nephropathy; T39.395A Adverse effect of other nonsteroidal anti-inflammatory drugs [NSAID], initial encounter; B96.20 Unspecified Escherichia coli [E. coli] as the cause of diseases classified elsewhere; B95.2 Enterococcus as the cause of diseases classified elsewhere; D64.9 Anemia, unspecified; E66.9 Obesity, unspecified; E11.22 Type 2 diabetes mellitus with diabetic chronic kidney disease; N18.9 Chronic kidney disease, unspecified; E11.65 Type 2 diabetes mellitus with hyperglycemia; E87.6 Hypokalemia; E83.42 Hypomagnesemia; E78.5 Hyperlipidemia, unspecified; E83.39 Other disorders of phosphorus metabolism; R11.2 Nausea with vomiting, unspecified; R42 Dizziness and giddiness; Z16.21 Resistance to vancomycin; Z16.11 Resistance to penicillins; Z89.421 Acquired absence of other right toe(s); Z68.30 Body mass index [BMI] 30.0-30.9, adult; Z79.4 Long term (current) use of insulin
CPT/HCPCS: 36246; 36569; 36600; 70450; 71045; 73620-52; 73630-LT; 73718; 75630; 76937; 80048; 80053; 80069; 81001; 81003; 82043; 82436; 82550; 82803; 82962; 83036; 83735; 84100; 84133; 84155; 84300; 85025; 85610; 85651; 86140; 87040; 87070; 87075; 87102; 88304; 88305; 88311; 93922; 94640; 94664; 96365; 96366; 96368; 97110; 97116; 97162; 97167; 97530; 97535; 99285-25

== ENCOUNTER 2018-08-25 09:52 | Day surgery (SDC) | payer BC ==
[~2018-08-25 09:52] MED LIST: GLYCOPYRROLATE 0.4 MG INJ
[2018-08-25] MEDS ORDERED: MIDAZOLAM 1 MG/ML 2 ML INJ ×3 (10:52→13:11)
[2018-08-25] MEDS ORDERED: FENTAnyl 50 MCG/ML VIAL ×2 (10:52→11:24)
[2018-08-25] MEDS ORDERED: ROPIVACAINE 0.2% 20 ML VIAL (10:53)
[2018-08-25] MEDS ORDERED: METOCLOPRAMIDE 10 MG INJ (10:53)
[2018-08-25] MEDS: ACETAMINOPHEN 500 MG TAB PO (11:12)
[2018-08-25] MEDS: SOD CHLORIDE 0.9% 1,000 ML IV (11:12)
[2018-08-25] MEDS ORDERED: CEFAZOLIN 1 GM INJ (11:23)
[2018-08-25] MEDS ORDERED: LIDOCAINE 2% (SDV) 5 ML INJ (11:23)
[2018-08-25] MEDS ORDERED: PROPOFOL 40 ML (11:23)
[2018-08-25] MEDS ORDERED: morphine 2 MG INJ IV ×2 (11:30)
[2018-08-25] MEDS ORDERED: MEPERIDINE 25 MG INJ IV (11:30)
[2018-08-25] MEDS ORDERED: LABETALOL HCL 20MG INJ IV (11:30)
[2018-08-25] MEDS ORDERED: FENTAnyl 50 MCG/ML VIAL IV ×2 (11:30)
[2018-08-25] MEDS ORDERED: ONDANSETRON 4 MG INJ IV (11:30)
[2018-08-25] MEDS ORDERED: HYDROmorphONE 1 MG/5 ML IV SYRINGE IV ×3 (11:30)
[2018-08-25] MEDS ORDERED: OXYCODONE/ACETAMINOPHEN (5/325) TAB PO ×2 (11:30)
[2018-08-25] MEDS ORDERED: ALBUTEROL 0.083% (NEB) 2.5 MG/3 ML AMP HHN (11:30)
[2018-08-25] MEDS ORDERED: DIPHENHYDRAMINE 50 MG INJ IV (11:30)
[2018-08-25] MEDS ORDERED: LIDOCAINE 2%/EPI 30 ML INJ (13:41)
[2018-08-25] MEDS: MINERAL OIL LIGHT 10 ML VIAL (13:49)
[2018-08-25] MEDS: LIDOCAINE 2%/EPI (MDV) 20ML INJ INJ (13:52)
[2018-08-25] MEDS: LIDOCAINE 1% (MPF) 30 ML INJ (13:57)
[2018-08-25] MEDS ORDERED: KETOROLAC 30 MG INJ IV (14:30)
== END 2018-08-25 16:24 | disposition home or self-care (01) ==
LOC: SDS 09:52
DX: E11.621 Type 2 diabetes mellitus with foot ulcer (principal); E11.42 Type 2 diabetes mellitus with diabetic polyneuropathy; Z79.84 Long term (current) use of oral hypoglycemic drugs
CPT/HCPCS: 15120; 82962; 87070; 87075; 87102